=== PATIENT | male | born 1980 | race Caucasian/White ===

== ENCOUNTER 2019-08-31 13:00 | Emergency (ER) | payer OTHER, SELFPAY ==
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
--- NOTE | ~2019-08-31 | CT_ITS ---
EXAMINATION: CT cervical spine wo con DATE: 08/31/2019 14:29 INDICATION: Neck pain TECHNIQUE: Computed tomography (CT) of the cervical spine was performed without intravenous contrast. The dose-length product (DLP) was 348.50 mGy-cm. Automated exposure control and iterative reconstruc tion technique were employed. COMPARISON: 02/05/2013 FINDINGS: There is no fracture, dislocation, or subluxation. The vertebral body heights, alignment, a nd intervertebral disc spaces are normal. The paravertebral soft tissues are unremarkable. The odonto id is intact. There is a small amount of soft tissue gas seen in the right supraclavicular region and right chest wall. IMPRESSION: 1. No acute osseous abnormality. 2. Soft tissue gas in the right supraclavicular region and right chest wall. Recommend correlation fo r chest wall injury. Reviewed, dictated and finalized at location A. IMPRESSION: 1. No acute osseous abnormality. 2. Soft tissue gas in the right supraclavicular region and right chest wall. Re commend correlation for chest wall injury.
--- NOTE | ~2019-08-31 | CT_ITS ---
EXAMINATION: CT facial bones wo con DATE: 08/31/2019 14:27 INDICATION: Facial pain TECHNIQUE: Computed tomography (CT) of the facial bones and maxillofacial region was performed withou t intravenous contrast. The dose-length product (DLP) was 279.37 mGy-cm. Automated exposure control a nd iterative reconstruction technique were employed. COMPARISON: None. FINDINGS: There is no facial bone fracture. The orbits are intact. The globes are normal. The patient is edentulous. The visualized soft tissues are unremarkable. IMPRESSION: 1. No facial fracture identified. Reviewed, dictated and finalized at location A.
[2019-08-31 13:00] VITALS: BP 105/50; PULSE 97; RESP 14; TEMP 36.8; O2SAT 95
[2019-08-31] MEDS: SODIUM CHLORIDE 0.9% IV 1,000 ML 999 ML IV CONT (13:06)
[2019-08-31 13:12] VITALS: BP 105/50; PULSE 95; RESP 14; TEMP 36.8; O2SAT 97
[2019-08-31 13:27] LABS: Glucose Point of Care 132 (65-105)
[2019-08-31 13:42] LABS: Base Excess ABG -1.9 mmol/L (0-2); HCO3 ABG 24.6 mmol/L (23-29); Oxygen Saturation ABG 95.4 % (95-97); Oxyhemoglobin 93.4 % (94-100); PCO2 ABG 48.7 mmHg (35-45); PO2 ABG 76.1 mmHg (80-90); Total Hemoglobin 13.7 g/dL; pH ABG 7.32 (7.35-7.45)
[2019-08-31 13:43] LABS: Device ROOM AIR; Modified Allen's Test Pass; Site Drawn LEFT RADIAL
[2019-08-31 13:45] LABS: Basophils Absolute Auto 0.02 K/mm3 (0.00-0.10); Basophils Percent Auto 0.3 % (0.0-1.0); Eosinophils Absolute Auto 0.14 K/mm3 (0.02-0.50); Eosinophils Percent Auto 1.8 % (1.0-6.0); Hematocrit 38.6 % (40.0-54.0); Hemoglobin 12.5 g/dL (14.0-18.0); Immature Granulocyte Absolute 0.03 K/mm3 (0.00-0.00); Immature Granulocyte Percent A 0.4 % (0.0-0.0); Lymphocytes Absolute Auto 1.59 K/mm3 (1.10-4.50); Lymphocytes Percent Auto 20.7 % (18.0-42.0); Mean Corpuscular HGB Conc 32.4 g/dL (32.0-36.0); Mean Corpuscular Hemoglobin 30.3 pg (27.0-31.0); Mean Corpuscular Volume 93.7 fL (78.0-102.0); Mean Platelet Volume 8.8 fl (8.7-11.0); Monocytes Absolute Auto 0.61 K/mm3 (0.10-0.90); Monocytes Percent Auto 7.9 % (2.0-11.0); Neutrophils Absolute Auto 5.3 K/mm3 (1.7-7.2); Neutrophils Percent Auto 68.9 % (50.0-70.0); Platelet Count Result 218 K/mm3 (150-420); Red Blood Count 4.12 M/mm3 (4.70-6.10); Red Cell Distribution Width 13.8 % (11.6-14.4); White Blood Count 7.7 K/mm3 (4.8-10.8)
[2019-08-31 14:02] LABS: Alanine Aminotransferase 28 U/L (16-63); Albumin Level 3.2 g/dL (3.4-5.0); Alkaline Phosphatase 50 U/L (46-116); Amylase 45 U/L (25-115); Anion Gap 9.2 mmol/L (7-16); Aspartate Amino Transferase 31 U/L (15-37); Bilirubin,Total 0.3 mg/dL (0.00-1.00); Blood Urea Nitrogen 21 mg/dL (7-18); Calcium 7.7 mg/dL (8.5-10.1); Carbon Dioxide 27 mmol/L (21-32); Chloride 105 mmol/L (98-108); Creatine Kinase 245 U/L (39-308); Estimated CRCL calculation 72 ml/min; Estimated Glomerular Filt Rate > 60; Glucose 139 mg/dL (70-99); Lipase 100 U/L (73-393); Osmolality Calculated 291 mOsm/kg (285-295); Potassium 3.2 mmol/L (3.5-5.1); Sodium 138 mmol/L (136-145); Total Protein 6.5 g/dL (6.4-8.2)
[2019-08-31 14:17] LABS: Acetaminophen 0 ug/mL (10-30); Troponin I < 0.02 ng/mL (0.00-0.056)
[2019-08-31 14:18] LABS: Ethanol < 3 mg/dL (0-6)
--- NOTE | 2019-08-31 14:31 | ECG_ITS ---
Measurements Intervals [place] Rate: 90 P: 64 AL: 170 QRS: 60 QRSD: 85 T: 64 QT: 382 QTc: 469 Interpretive Statements SINUS RHYTHM DELAYED PRECORDIAL R/S TRANSITION MINIMAL Q WAVES- INF/LAT LEADS ST ELEVATION IN ANTEROLATERAL LEADS- CONSIDER INJURY, PERICARDITIS OR EARLY REPOLARIZATION BASELINE ARTIFACT- V2, V4-V6 BORDERLINE ECG Electronically Signed On 08-31-2019 21:09:05 CDT by Giovanni Ramos D.O.
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
[2019-08-31 15:39] LABS: Add Urine Microscopic? YES; Appearance Urine Clear (Clear); Bilirubin Urine Negative (Negative); Blood Urine Negative (Negative); Color Urine Yellow (Yellow); Glucose Urine UA Negative (Negative); Ketones Urine Negative (Negative); Leukocyte Esterase Ur Negative (Negative); Nitrate Urine Negative (Negative); Protein Urine 1+ (Negative); Specific Grav Ur >= 1.030 (1.010-1.020); Urobilinogen Urine 0.2 mg/dL (0.2-1.0)
[2019-08-31 15:46] LABS: Amphetamine Screen Urine Positive (Negative); Barbiturate Screen Urine Negative (Negative); Benzodiazepines Screen Urine Negative (Negative); Cannabinoid Screen Urine Positive (Negative); Cocaine Screen Urine Negative (Negative); Methadone Screen Urine Negative (Negative); Opiate Screen Urine Negative (Negative); Phencyclidine Screen Urine Negative (Negative)
[2019-08-31 15:49] LABS: Bacteria Urine 1+ /hpf; RBC Urine None seen /hpf (0-2); Squamous Epithelial Cell Urine Few /hpf (Few); WBC Urine None seen /hpf (0-3)
[2019-08-31 15:50] LABS: Mucus Urine Few /lpf
[2019-08-31 16:08] VITALS: BP 115/62; PULSE 86; RESP 15; O2SAT 96
== END 2019-08-31 16:10 | disposition left against medical advice (07) ==
PROVIDERS: Emergency Provider Emergency Medicine; PCP Internal Medicine
DX: R41.82 Altered mental status, unspecified (principal); F15.90 Other stimulant use, unspecified, uncomplicated; S16.1XXA Strain of muscle, fascia and tendon at neck level, initial encounter; V89.2XXA Person injured in unspecified motor-vehicle accident, traffic, initial encounter
CPT/HCPCS: 36415; 36600; 70450; 70486; 71045; 71250; 72125; 74176; 80053; 80307; 81001; 82150; 82550; 82805; 82948; 83690; 84484; 85025; 93005; 96360; 96361; 99284; J7030

== ENCOUNTER 2019-09-24 00:19 | Emergency (ER) | payer OTHER, SELFPAY ==
[2019-09-24 00:19] VITALS: BP 135/85; PULSE 128; RESP 20; TEMP 36.1; O2SAT 97
--- NOTE | 2019-09-24 00:24 | ECG_ITS ---
Measurements Intervals [place] Rate: 108 P: 72 MA: 124 QRS: 89 QRSD: 85 T: 61 QT: 359 QTc: 481 Interpretive Statements SINUS TACHYCARDIA MINIMAL Q WAVES- ANTEROLAT/INF LEADS ST ELEVATION IN ANTERIOR LEADS- PROBABLY EARLY REPOLARIZATION ABNORMAL ECG Electronically Signed On 09-24-2019 8:51:57 CDT by Giovanni Ramos D.O.
--- NOTE | 2019-09-24 00:25 | ED.SKABFB ---
HPI - Skin/Abscess/Foreign Bdy General Chief complaint: Skin/Abscess/Foreign Body Stated complaint: Possible Abscess Time Seen by Provider: 09/24/19 00:20 Source: patient Mode of arrival: ambulatory Limitations: no limitations History of Present Illness HPI narrative: 39-year-old man comes in today complaining of multiple painful lesions under his arms. Right greater than left. He states the symptoms started 5 or 6 days ago. He states that he was treated for similar symptoms about a year ago wherein he had I and D's. He denies fever, nausea, vomiting. Patient states that he has had 2 ablations for atrial fibrillation. complaint: abscess/boil Onset (ago): day(s) (6) Tetanus up to date: unsure Location: LUE (axilla) and RUE (axilla) Severity: moderate Quality: sharp Pain Consistency: constant Relieving factors: none Exacerbating factors: palpation Related Data Allergies Allergy/AdvReac Type Severity Reaction Status Date / Time No Known Allergies Allergy Unknown Unverified 05/20/12 23:00 Review of Systems Constitutional: Constitutional: Denies chills and Denies fever(s) Eyes: Eyes: Denies change in vision and Denies photophobia ENT: Denies dysphagia, Denies nasal congestion and Denies sore throat Cardiovascular: Cardiovascular: Denies chest pain, Reports rapid heart rate and Denies radiating jaw, neck or arm pain Respiratory: Respiratory: Denies cough, Denies dyspnea and Denies wheezing Gastrointestinal: Gastrointestinal: Denies abdominal pain, Denies nausea and Denies vomiting Musculoskeletal: Musculoskeletal: Denies arthralgias and Denies joint swelling Integumentary/Breasts: Skin/Breast: Denies pruritus, Denies erythema and Denies rash Neurologic: Denies vertigo, Denies dizziness and Denies syncope Hematologic/Lymphatic: Hematologic/Lymphatic: Denies easy bleeding and Denies easy bruising Allergic/Immunologic: Allergic/Immunologic: Denies throat swelling and Denies tongue swelling PMFSH Social History Social History Smoking packs per day: 1 Smoking cigarettes per day: 20.0 Smoking status: Current every day smoker Tobacco type: cigarettes Alcohol intake: unknown Substance use: current Substance use type: marijuana Exam Const: General: healthy appearing and alert Orientation/consciousness: patient oriented x3 Limitations: no limitations Other: Moderate acute distress Eyes: Conjunctivae: conjunctivae normal Pupils: Equal, round and reactive pupils present EOM: EOMs intact bilaterally Resp: Effort & Inspection: normal respiratory effort and not labored Auscultation: clear to auscultation bilaterally, no rales, no rhonchi and no wheezes Cardio: Rate: tachycardic Rhythm: regular rhythm Heart sounds: no murmurs Skin: General skin exam: normal color, no jaundice and no pallor Rashes: no rashes Other: 7 x 1-3 cm tender, firm subcutaneous masses with overlying erythema in the right axilla and 3 x1-2 cm tender, firm subcutaneous masses with overlying erythema in the left axilla. The 2 largest lesions under the right axilla have some modest fluctuance. Neuro: General: patient oriented x3, moves all extremities, no focal motor deficits and CN's II-XI intact bilaterally Speech: normal speech Extrem: General: normal to inspection and no clubbing, cyanosis or edema Psych: Appearance: grossly normal and well kempt Mental Status: mental status grossly normal Affect: normal affect Attitude: cooperative Thought content: Yes Normal thought content present Course Vital Signs Vital signs: Vital Signs Temperature 36.1 C L 09/24/19 00:19 Pulse Rate 128 H 09/24/19 00:19 Respiratory Rate 20 09/24/19 00:19 Blood Pressure 135/85 09/24/19 00:19 Pulse Oximetry 97 09/24/19 00:19 Temperature 36.1 C L 09/24/19 00:19 Pulse Rate 128 H 09/24/19 00:19 Respiratory Rate 20 09/24/19 00:19 Blood Pressure 135/85 08/1
[2019-09-24] MEDS: LIDOCAINE HCL 1% LOCAL INJ 20 ML VIAL 10 ML INFILTRATE (00:45)
[2019-09-24 00:59] VITALS: BP 138/78
== END 2019-09-24 01:11 | disposition home or self-care (01) ==
PROVIDERS: Emergency Provider Emergency Medicine; PCP Internal Medicine
DX: L02.412 Cutaneous abscess of left axilla (principal); L02.411 Cutaneous abscess of right axilla
CPT/HCPCS: 10061; 87070; 87077; 87186; 87205; 93005; 99283; 99284; A9270

== ENCOUNTER 2019-10-13 01:35 | Emergency (ER) | payer OTHER, SELFPAY ==
[2019-10-13] VITALS (13 sets, daily range): BP systolic 125–146; BP diastolic 79–93; PULSE 73–95; RESP 10–20; TEMP 36.9; O2SAT 92–97
--- NOTE | ~2019-10-13 | CT_ITS ---
EXAMINATION: CTA chest PE protocol DATE: 10/13/2019 02:37 INDICATION: Chest pain and shortness of breath TECHNIQUE: Computed tomography angiography (CTA) of the chest was performed with 100 mL Omnipaque-350 intravenous contrast timed to evaluate the pulmonary arteries. Coronal maximum intensity projection 3D-reconstructions were created by the technologist. The dose-length product (DLP) was 285.08 mGy-cm. Automated exposure control and iterative reconstruction technique were employed. COMPARISON: 08/31/2019 FINDINGS: The pulmonary arteries are well-opacified. No pulmonary embolism is identified. There is mi ld dependent atelectasis. No focal airspace opacities are identified. No pathologically enlarged thor acic lymph nodes are identified. The heart size is normal. An old left clavicle fracture is noted. IMPRESSION: 1. No pulmonary embolism or acute cardiopulmonary abnormality. Reviewed, dictated and finalized at location A.
--- NOTE | 2019-10-13 01:49 | ECG_ITS ---
Measurements Intervals [place] Rate: 80 P: 66 MD: 170 QRS: 60 QRSD: 88 T: 55 QT: 393 QTc: 455 Interpretive Statements SINUS RHYTHM MINIMAL Q WAVES- DIFFUSE LEADS BORDERLINE ECG Electronically Signed On 10-13-2019 8:27:14 CDT by Giovanni Ramos D.O.
--- NOTE | 2019-10-13 01:56 | PC.NURSE ---
ISP officer states he will leave at this time and release patient to receive medical treatment.
[2019-10-13 02:06] LABS: Basophils Percent Auto 0.5 % (0.2-1.2); Eosinophils Absolute Auto 0.2 K/mm3 (0-0.3); Hematocrit 38.6 % (42.0-52.0); Hemoglobin 12.5 g/dL (14.0-18.0); Immature Granulocyte Absolute 0.01 K/mm3 (0.00-0.031); Immature Granulocyte Percent A 0.2 % (0-0.5); Lymphocytes Percent Auto 43.2 % (18.3-44.2); Mean Corpuscular HGB Conc 32.4 g/dl (32-36); Mean Corpuscular Hemoglobin 29.8 pg (26-34); Mean Corpuscular Volume 92.1 fl (80-100); Monocytes Absolute Auto 0.7 K/mm3 (0.1-0.6); Monocytes Percent Auto 11.7 % (2.6-8.5); Neutrophils Absolute Auto 2.2 K/mm3 (1.3-6.7); Neutrophils Percent Auto 40.4 % (45.5-73.1); Platelet Count Result 236 k/mm3 (150-375); Red Blood Count 4.19 M/mm3 (4.6-6.20); Red Cell Distribution Width 13.8 % (11.5-14.5); White Blood Count 5.6 K/mm3 (4.5-10.0)
[2019-10-13 02:17] LABS: Prothrombin Time 12.7 Seconds (11.1-14.7)
[2019-10-13 02:18] LABS: Partial Thromboplastin Time 36.6 SECONDS (22.3-36.8)
[2019-10-13 02:20] LABS: Anion Gap 5 mmol/L (8-16); Blood Urea Nitrogen 19 mg/dL (9-20); Calcium 8.7 mg/dL (8.4-10.2); Carbon Dioxide 28 mmol/L (22-30); Chloride 103 mmol/L (98-107); Estimated Glomerular Filt Rate > 60; Glucose 87 mg/dL (75-110); Sodium 136 mmol/L (137-145)
--- NOTE | 2019-10-13 02:25 | PC.NURSE ---
Patient being taken to CT.
[2019-10-13 02:37] LABS: Troponin I < 0.012 ng/mL (0.000-0.034)
[2019-10-13 05:08] LABS: Troponin I < 0.012 ng/mL (0.000-0.034)
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
== END 2019-10-13 06:35 | disposition home or self-care (01) ==
PROVIDERS: Emergency Provider Emergency Medicine; PCP Internal Medicine
DX: R07.9 Chest pain, unspecified (principal); F17.210 Nicotine dependence, cigarettes, uncomplicated; R94.31 Abnormal electrocardiogram [ECG] [EKG]
CPT/HCPCS: 36415; 71275; 80048; 84484; 85025; 85610; 85730; 93005; 99284; Q9967

== ENCOUNTER 2020-02-15 12:43 | Emergency (ER) | payer OTHER, SELFPAY ==
[2020-02-15 12:45] VITALS: BP 134/89; PULSE 103; RESP 18; TEMP 37.1; O2SAT 98
--- NOTE | 2020-02-15 12:59 | ED.GENADULT ---
HPI - General Adult General Chief complaint: Extremity Problem,Nontraumatic Stated complaint: Swelling of the legs Time Seen by Provider: 02/15/20 12:59 Source: patient Mode of arrival: ambulatory Limitations: no limitations History of Present Illness HPI narrative: 39-year-old man comes in today complaining of 4-6 weeks of swelling in his lower legs. Patient states that he has had no injury or recent surgery nor has he had any chest pain, shortness of breath, redness, fever, weakness or numbness. Patient states that he has recently used both amphetamines and narcotics. Onset (ago): week(s) (4-6) Location: lower extremity Quality: aching Pain Consistency: constant Relieving factors: none and other (leg eelvation) Associated symptoms: denies other symptoms Related Data Home Medications Medication Instructions Recorded Confirmed No Home Medications 02/15/20 02/15/20 Allergies Allergy/AdvReac Type Severity Reaction Status Date / Time No Known Allergies Allergy Unknown Unverified 05/20/12 23:00 Review of Systems Constitutional: Constitutional: Denies chills, Denies fever(s) and Denies weakness ENT: Denies dysphagia, Denies nasal congestion and Denies sore throat Cardiovascular: Cardiovascular: Denies chest pain and Denies radiating jaw, neck or arm pain Respiratory: Respiratory: Denies cough, Denies dyspnea and Denies wheezing Gastrointestinal: Gastrointestinal: Denies abdominal pain, Denies nausea and Denies vomiting Genitourinary: Genitourinary: Denies hematuria, Denies dysuria and Denies urinary frequency Musculoskeletal: Musculoskeletal: Denies back pain, Denies arthralgias and Denies joint swelling Integumentary/Breasts: Skin/Breast: Denies rash Neurologic: Denies vertigo, Denies dizziness and Denies syncope Hematologic/Lymphatic: Hematologic/Lymphatic: Denies easy bleeding and Denies easy bruising Allergic/Immunologic: Allergic/Immunologic: Denies lip swelling and Denies throat swelling PMFSH Past Medical History Medical History Atrial fibrillation Bipolar 1 disorder Surgical History Surgical History History of radiofrequency ablation procedure for cardiac arrhythmia Social History Social History Smoking packs per day: 1 Smoking cigarettes per day: 20.0 Smoking status: Current every day smoker Tobacco type: cigarettes Alcohol intake: unknown Substance use: current Substance use type: marijuana Exam Const: General: healthy appearing Orientation/consciousness: patient oriented x3 Limitations: No no limitations Other: mild acute distress. Eyes: Conjunctivae: conjunctivae normal EOM: EOMs intact bilaterally Resp: Effort & Inspection: normal respiratory effort and not labored Auscultation: clear to auscultation bilaterally, no rales, no rhonchi and no wheezes Other: pulses are full and symmetric Cardio: Rate: regular rate Rhythm: regular rhythm GI: GI Palp: No Soft to palpation and No Tenderness to palpation present (GI) Skin: General skin exam: normal color, no jaundice and no pallor Rashes: no rashes Other: pitting pedal edema bilaterally. No tenderness or erythema. Extrem: General: normal to inspection Other: no clubbing or cyanosis. Psych: Appearance: grossly normal and well kempt Mental Status: mental status grossly normal Affect: normal affect Attitude: cooperative Thought content: Yes Normal thought content present Course Vital Signs Vital signs: Vital Signs Temperature 37.1 C 02/15/20 12:45 Pulse Rate 103 H 02/15/20 12:45 Respiratory Rate 18 02/15/20 12:45 Blood Pressure 134/89 02/15/20 12:45 Pulse Oximetry 98 02/15/20 12:45 Temperature 37.1 C 02/15/20 12:45 Pulse Rate 103 H 02/15/20 12:45 Respiratory Rate 18 02/15/20 12:45 Blood Pressure 134/89
--- NOTE | 2020-02-15 13:04 | ECG_ITS ---
Measurements Intervals [place] Rate: 85 P: 58 [place]: 165 QRS: 69 QRSD: 86 T: 54 QT: 379 QTc: 453 Interpretive Statements SINUS RHYTHM MINIMAL Q WAVES- ANTEROLAT/INF LEADS BASELINE ARTIFACT- I, II, III, AVR, AVL, AVF, V1-V6 Electronically Signed On 02-15-2020 16:36:49 [employer] by Goivanni Ramos D.O.
[2020-02-15 13:20] LABS: Basophils Absolute Auto 0.03 K/mm3 (0.00-0.10); Basophils Percent Auto 0.6 % (0.0-1.0); Eosinophils Absolute Auto 0.28 K/mm3 (0.02-0.50); Eosinophils Percent Auto 5.5 % (1.0-6.0); Hematocrit 38.1 % (40.0-54.0); Hemoglobin 12.3 g/dL (14.0-18.0); Immature Granulocyte Absolute 0.02 K/mm3 (0.00-0.00); Immature Granulocyte Percent A 0.4 % (0.0-0.0); Lymphocytes Absolute Auto 2.36 K/mm3 (1.10-4.50); Lymphocytes Percent Auto 46.1 % (18.0-42.0); Mean Corpuscular HGB Conc 32.3 g/dL (32.0-36.0); Mean Corpuscular Hemoglobin 29.9 pg (27.0-31.0); Mean Corpuscular Volume 92.5 fL (78.0-102.0); Mean Platelet Volume 8.8 fl (8.7-11.0); Monocytes Percent Auto 9.8 % (2.0-11.0); Neutrophils Absolute Auto 1.9 K/mm3 (1.7-7.2); Neutrophils Percent Auto 37.6 % (50.0-70.0); Platelet Count Result 213 K/mm3 (150-420); Red Blood Count 4.12 M/mm3 (4.70-6.10); Red Cell Distribution Width 13.5 % (11.6-14.4); White Blood Count 5.1 K/mm3 (4.8-10.8)
[2020-02-15 13:23] LABS: Add Urine Microscopic? NO; Appearance Urine Clear (Clear); Bilirubin Urine Negative (Negative); Blood Urine Negative (Negative); Color Urine Yellow (Yellow); Glucose Urine UA Negative (Negative); Ketones Urine Negative (Negative); Leukocyte Esterase Ur Negative (Negative); Nitrate Urine Negative (Negative); Protein Urine Negative (Negative); Specific Grav Ur 1.025 (1.010-1.020); Urobilinogen Urine 0.2 mg/dL (0.2-1.0)
[2020-02-15 13:31] LABS: D Dimer 0.21 mg/L (0.19-0.50)
[2020-02-15 13:34] LABS: BNP 11.1 pg/mL (0-100)
[2020-02-15 13:36] LABS: Alanine Aminotransferase 31 U/L (16-63); Albumin Level 3.5 g/dL (3.4-5.0); Alkaline Phosphatase 78 U/L (46-116); Anion Gap 4 mmol/L (8-16); Aspartate Amino Transferase 20 U/L (15-37); Bilirubin,Total 0.2 mg/dL (0.00-1.00); Blood Urea Nitrogen 18 mg/dL (7-18); CRP < 0.5 mg/dL (0.0-0.9); Calcium 8.6 mg/dL (8.5-10.1); Carbon Dioxide 31 mmol/L (21-32); Chloride 101 mmol/L (98-108); Estimated Glomerular Filt Rate > 60; Glucose 118 mg/dL (70-99); Osmolality Calculated 284 mOsm/kg (285-295); Potassium 4.2 mmol/L (3.5-5.1); Sodium 136 mmol/L (136-145); Total Protein 6.9 g/dL (6.4-8.2); Troponin I 23.7 ng/L (0.00-60.4)
[2020-02-15 14:15] VITALS: RESP 20
== END 2020-02-15 14:16 | disposition home or self-care (01) ==
PROVIDERS: Emergency Provider Emergency Medicine
DX: R60.0 Localized edema (principal)
CPT/HCPCS: 36415; 80053; 81003; 83880; 84484; 85025; 85380; 86140; 93005; 99282; 99283

== ENCOUNTER 2020-07-10 09:58 | Observation (INO) | payer OTHER, SELFPAY ==
[2020-07-10] VITALS (12 sets, daily range): BP systolic 117–151; BP diastolic 59–110; PULSE 67–129; RESP 16–25; TEMP 36.1–36.8; O2SAT 95–100
--- NOTE | ~2020-07-10 | XR_ITS ---
EXAMINATION: XR shoulder LT min 2V EXAM DATE: 07/10/2020 10:52 INDICATION: No known recent injury provided at this time. Pain of the left shoulder. TECHNIQUE: The following left shoulder projections obtained: frontal projection with internal rotatio n, frontal projection with external rotation, Grashey, and axillary (4+ views). There is no prior st udy for comparison. FINDINGS: No evidence of left shoulder rotator cuff calcific tendinosis. Unremarkable left glenohu meral and acromioclavicular joints. There are no acute fractures or dislocations identified. There i s no subcutaneous gas. The soft tissue is unremarkable. There are no radiopaque foreign bodies. IMPRESSION: 1. Unremarkable XR shoulder LT min 2V exam. Reviewed, dictated and finalized at location A.
--- NOTE | ~2020-07-10 | XR_ITS ---
EXAMINATION: XR chest 1V portable EXAM DATE: 07/10/2020 10:53 INDICATION: Tachycardia. TECHNIQUE: Portable AP frontal chest x-ray was obtained. Comparison is made to prior examination from 08/01/2019. FINDINGS: Mild hyperinflation. The lungs are clear. There are no pleural effusions. The cardiomedia stinal silhouette is within normal limits. There is no pneumothorax suspected. The bones and soft t issues are unremarkable. IMPRESSION: Mild hyperinflation. Reviewed, dictated and finalized at location A. IMPRESSION: Mild hyperinflation.
--- NOTE | 2020-07-10 10:36 | ED.GENADULT ---
HPI - General Adult General Chief complaint: Unspecified Stated complaint: drug abuse/poss poisoning Time Seen by Provider: 07/10/20 10:05 Source: patient Mode of arrival: ambulatory Limitations: intoxication History of Present Illness HPI narrative: Patient presents for evaluation of pain all over . He admits to history of substance abuse, informing me that he smokes methamphetamine. Indicates his last use was yesterday afternoon. However nursing staff informs me that patient stated he has been using methamphetamine in an attempt to get off of heroin . Apparently patient has been anxious and thrashing around since approximately 1630 yesterday. He informs me that he has left shoulder pain. No identified precipitating cause or injury. He states he also consumes alcohol with last use within the last 1 to 2 days. He denies any chest pain shortness of breath. On my initial evaluation, he is thrashing around in the bed, anxious, only answering questions after I repeat myself several times. States he has a history of atrial fibrillation but has been off medication for a while when I asked him to clarify that he indicates he has not been on any medications since his cardiac catheterization which was at the age of 21. Related Data Home Medications Medication Instructions Recorded Confirmed No Home Medications 02/15/20 02/15/20 Allergies Allergy/AdvReac Type Severity Reaction Status Date / Time No Known Allergies Allergy Unknown Unverified 05/20/12 23:00 Review of Systems Review of Systems: Narrative: CONSTITUTIONAL: Denies fever, chills, or sweats. EYES: Denies visual changes, redness, or discharge. ENT: Denies rhinorrhea, congestion, sore throat, or otalgia. CARDIOVASCULAR: Denies chest pain, palpitations, or edema. RESPIRATORY: Denies cough or dyspnea. GASTROINTESTINAL: Denies abdominal pain, nausea, vomiting, or diarrhea. GENITOURINARY: Denies dysuria or hematuria. SKIN: Denies rash or itching. MUSCULOSKELETAL: Reports pain in the left shoulder and pain all over . NEUROLOGIC: Denies headache, numbness, dizziness, or weakness. PSYCHIATRIC: Denies anxiety or depression. [facility] Past Medical History Medical History (Updated 07/10/20 @ 12:23 by Chang Greene, [facility], ) Atrial fibrillation Bipolar 1 disorder Substance abuse Surgical History Surgical History History of radiofrequency ablation procedure for cardiac arrhythmia Social History Social History Smoking packs per day: 1 Smoking cigarettes per day: 20.0 Smoking status: Current every day smoker Tobacco type: cigarettes Alcohol intake: unknown Substance use: current Substance use type: marijuana Exam Narrative: Exam Narrative: GENERAL: Visibly uncomfortable. Thrashing around in bed. HEAD: Normocephalic, atraumatic. EYES: PERRLA and EOMI. ENT: Nares clear, no rhinorrhea or epistaxis. Mucous membranes moist. Oropharynx without tonsillar hypertrophy exudate or other lesions. Bilateral TMs pearly sellers nonbulging NECK: Supple. No adenopathy or masses. No carotid bruits or JVD CHEST: Clear to auscultation. No respiratory distress. No wheezes rales or rhonchi HEART: Regular rhythm. Rate 105. No murmur heard. Normal peripheral pulses. ABDOMEN: Soft, nontender, nondistended, normal active bowel sounds. EXTREMITIES: Normal range of motion. No edema. SKIN: Warm, dry, no rash. NEURO: No focal deficits. Oriented x 3. Speech mumbled PSYCH: Anxious. Abnormal affects Course Course Emergency Course: This is a 40-year-old male with history of substance abuse that arrived suspected to be under the influence of methamphetamine. Of note on his lab work, CPK was close to 1300. Troponin was negative. Patient was hydrated. I discussed all relevant facts of case with supervising physician, Dr. Aguilera, who was in agreement with plans for adm
--- NOTE | 2020-07-10 10:39 | ECG_ITS ---
Measurements Intervals [place] Rate: 98 P: 66 OR: 154 QRS: 68 QRSD: 92 T: 52 QT: 383 QTc: 491 Interpretive Statements SINUS RHYTHM MINIMAL Q WAVES- ANTEROLAT/INF LEADS NONSPECIFIC T-WAVE ABNORMALITY- ANTERIOR LEADS BORDERLINE ECG Electronically Signed On 07-10-2020 17:47:14 CDT by Giovanni Ramos D.O.
[2020-07-10] MEDS: SODIUM CHLORIDE 0.9% IV 1,000 ML 999 ML IV CONT ×2 (11:03→12:30)
[2020-07-10] MEDS: LORazepam INJ (*CRX) 2 MG/ML VIAL 1 MG IV PUSH ×2 (11:04→23:10)
--- NOTE | 2020-07-10 11:14 | PC.NURSE ---
Pt up out of bed while this RN in room . Informed pt that he needs to sit in bed so he will not fall. Pt states I am in pain Pt states I will leave AMA.
[2020-07-10 11:15] LABS: Basophils Percent Auto 0.4 % (0.2-1.2); Eosinophils Absolute Auto 0.3 K/mm3 (0-0.3); Eosinophils Percent Auto 2.5 % (0-4.4); Hematocrit 40.3 % (42.0-52.0); Hemoglobin 13.1 g/dL (14.0-18.0); Immature Granulocyte Absolute 0.03 K/mm3 (0.00-0.031); Immature Granulocyte Percent A 0.3 % (0-0.5); Lymphocytes Absolute Auto 3.37 K/mm3 (0.9-3.2); Lymphocytes Percent Auto 31.7 % (18.3-44.2); Mean Corpuscular HGB Conc 32.5 g/dl (32-36); Mean Corpuscular Hemoglobin 28.8 pg (26-34); Mean Corpuscular Volume 88.6 fl (80-100); Mean Platelet Volume 8.8 fl (7.4-10.4); Monocytes Absolute Auto 1.5 K/mm3 (0.1-0.6); Neutrophils Absolute Auto 5.4 K/mm3 (1.3-6.7); Neutrophils Percent Auto 51.1 % (45.5-73.1); Platelet Count Result 277 k/mm3 (150-375); Red Blood Count 4.55 M/mm3 (4.6-6.20); Red Cell Distribution Width 14.6 % (11.5-14.5); White Blood Count 10.6 K/mm3 (4.5-10.0)
[2020-07-10 11:26] LABS: Ethanol < 10 mg/dL (<10)
[2020-07-10 11:37] LABS: Troponin I < 0.012 ng/mL (0.000-0.034)
[2020-07-10 11:45] LABS: Alanine Aminotransferase 125 U/L (4-50); Albumin Level 4.4 g/dL (3.5-5.1); Alkaline Phosphatase 76 U/L (38-126); Anion Gap 10 mmol/L (8-16); Aspartate Amino Transferase 143 U/L (17-59); Bilirubin,Total 0.7 mg/dL (0.2-1.3); Blood Urea Nitrogen 30 mg/dL (9-20); Calcium 9.3 mg/dL (8.4-10.2); Carbon Dioxide 25 mmol/L (22-30); Chloride 104 mmol/L (98-107); Estimated CRCL calculation 115 ml/min; Estimated Glomerular Filt Rate > 60; Glucose 136 mg/dL (75-110); Magnesium 2.3 mg/dL (1.6-2.3); Potassium 4.2 mmol/L (3.4-5.0); Sodium 139 mmol/L (137-145)
[2020-07-10 11:51] LABS: Creatine Kinase 1292 U/L (55-170)
--- NOTE | 2020-07-10 13:46 | PC.NURSE ---
This RN into pts room to get urine. Informed pt that we will need to straight cath pt if unable to give sample. Pt refused to lay back and put his legs down. Pt states i want to leave AMA . Informed PA Ramona of this.
--- NOTE | 2020-07-10 13:51 | PC.NURSE ---
Informed PA Ramona that pt is still not giving urine sample , per PA thats ok, we dont need urine to admit him .
--- NOTE | 2020-07-10 14:01 | PC.NURSE ---
Pt states he doesnt want the medication he just wants to leave AMA. Informed PA Ramona of this and he states that we cant let pt go because he is only oriented to 1. PA states that we cant withhold care from pt.
[2020-07-10 14:33] LABS: Troponin I < 0.012 ng/mL (0.000-0.034)
[2020-07-10] MEDS: LORazepam INJ (*CRX) 2 MG/ML VIAL 0.5 MG IV PUSH (14:36)
[2020-07-10 14:51] LABS: Add Urine Microscopic? YES; Appearance Urine Clear (Clear); Bilirubin Urine Negative (Negative); Blood Urine Negative (Negative); Color Urine Amber (Yellow); Glucose Urine UA Negative (Negative); Ketones Urine Trace mg/dL (Negative); Leukocyte Esterase Ur Negative LEU/UL (Negative); Mucus Urine Few /lpf; Nitrate Urine Negative (Negative); Protein Urine Negative (Negative); RBC Urine 0-2 /hpf (0-2); Urobilinogen Urine Negative mg/dL (<2.0); WBC Urine 0-3 /hpf
[2020-07-10 14:52] LABS: Specific Grav Ur 1.033 (1.001-1.035)
[2020-07-10 15:12] LABS: Barbiturate Screen Urine Negative (Negative); Benzodiazepines Screen Urine Negative (Negative)
[2020-07-10 15:13] LABS: Cannabinoid Screen Urine Positive (Negative); Cocaine Screen Urine Negative (Negative); Methadone Screen Urine Negative (Negative); Opiate Screen Urine Negative (Negative); Phencyclidine Screen Urine Negative (Negative)
--- NOTE | 2020-07-10 15:30 | PC.NURSE ---
this RN , charge nurse, Dr. Aguilera and several techs in room trying to get pt to get into bed. Pt starts screaming and refusing to get into bed. Pt is placed back into bed with assistance from techs and RN. Pt is trying to grab and squeeze at staff pt states i fucking hate you, I want to leave AMA, I am calling my senior database programmer Pt placed in restraints per EDP. good pulses are noted and sitter is at bedside.
[2020-07-10 15:32] LABS: Amphetamine Screen Urine Positive (Negative)
[2020-07-10 16:07] LABS: Acetaminophen < 10 ug/mL (10-30); Salicylate < 1.0 mg/dL (2-20)
[2020-07-10] MEDS: HALOPERIDOL LACTATE 5 MG/ML VIAL IV PUSH (16:11)
[2020-07-10] MEDS: WATER, STERILE FOR INJECTION 10 ML VIAL XX (16:12)
[2020-07-10] MEDS: OLANZapine 10 MG INJ VIAL (16:12)
--- NOTE | 2020-07-10 18:01 | PM.IMHP ---
H&P: HPI History of Present Illness Date/Time: 07/10/20 18:01 male patient who has a history of polysubstance abuse. To the emergency room today complaining of pain all over. The patient admitted earlier that he smokes and methamphetamine. However he told the daughter that he was given 2 pills at a friend's house anything said it was wrapped poison. The patient started using methamphetamine and attempt to get off of heroin. According to his daughter Stefani the patient has used heroin in the past. The patient was complaining of some left shoulder pain. He also consumes alcohol with last use the last day or 2. He denied any shortness of breath. Patient explained that he had a history of atrial fibrillation but was off of his medication. It is very difficult to understand the patient's speech. He is pacing around the room and getting out of the bed and taking off the heart monitor and has torn apart is IV tubimg. The patient is trying to sign out AMA. We were able to talk to his daughter Stefani who came in to talk to the patient. The patient then sat down on the bed. The patient was given multiple medications to help calm him down. The patient was swinging his legs and pacing and rocking and was talking rapidly with incomprehensible speech. On IV fluids for rhabdomyolysis. He was given Ativan couple different times, Haldol, and Zyprexa. The patient was then placed in restraints. The daughters at the bedside crying. His chest x-ray was read as mild hyperinflation. Shoulder x-ray of the left shoulder was found to be unremarkable.. Total creatinine is 1292. Troponin was found to be undetectable. Patient was found to be positive for amphetamines and cannabinoids. The patient lives with his mother and was telling her that he felt odd and that he could not feel is arms and his feet. He took a cold shower then went outside to smoke a cigarette. That he disappeared. He was found later to be with a friend in another town. The patient then came to the emergency room. His daughter is at the bedside. The patient is being admitted for observation on the date of service of 07/10/2020. Chief Complaint: Pain all over Review of Systems Review of Systems: ROS unobtainable: Yes unobtainable due to mental status [facility] Past Medical History Medical History (Updated 07/10/20 @ 18:14 by Joana Rhodes NP) Atrial fibrillation Bipolar 1 disorder Substance abuse Surgical History Surgical History History of radiofrequency ablation procedure for cardiac arrhythmia Social History Social History (Updated 07/10/20 @ 18:15 by Joana Rhodes NP) Social History: The patient's daughter Stefani stated that he lives with his mother and that he has 4 children. He smokes about a pack cigarettes a day. He was known to use heroin in the past. And he has been using heroin for at least 7 years. On and off. He does use alcohol and unknown quantities. He lives with his mother and I am not sure she is the durable power deputy commonwealth's attorney for healthcare. Patient is listed as a full code. His daughter Stefani can be reached at [phone] Smoking packs per day: 1 Smoking cigarettes per day: 20.0 Smoking status: Current every day smoker Tobacco type: cigarettes Alcohol intake: unknown Substance use: current Substance use type: marijuana Meds Home Medications and Allergies Home Medications Medication Instructions Recorded Confirmed Type No Home Medications 02/15/20 02/15/20 History Allergies Allergy/AdvReac Type Severity Reaction Status Date / Time No Known Allergies Allergy Unknown Unverified 05/20/12 23:00 Vital Signs Vital Signs - 24 hr 07/10/20 10:09 07/10/20 12:00 07/10/20 12:34 Temperature 36.6 C Pulse Rate 110 H 74 67 Respiratory Rate 25 H 18 20 Blood Pressure 141/59 H 131/78 135/86 Pulse Oximetry 100 100 99 07/10/20 13:00 07/10/20 15:00 07/10/20 17:
--- NOTE | 2020-07-10 18:20 | PC.NURSE ---
Pt taken to room by specimen technician. Pts belongings were taken with him.
--- NOTE | 2020-07-10 18:32 | ADMGEN ---
This patient, Sang Chávez, was admitted to Medical Room 244-. Patient/family oriented to hospital policies and general routines including ID bracelet, bed and alarms, visiting hours, pain management, procedures, bathroom and other care routines, personal items, smoking policy, room service/diet, and visiting hours. Information on how to activate the Rapid Response Team has been discussed. Patient/Family are encouraged to report perceived risks to care and to ask questions if they do not understand what they are told or what they should do.
--- NOTE | 2020-07-10 18:53 | PC.NURSE ---
Patient unable to answer admission assessment questions. Calls were made to both Hakeem his brother and Stefani his daughter, both did not answer their phones for questions.
[2020-07-10 18:57] LABS: Acetaminophen < 10 ug/mL (10-30); Creatine Kinase 1045 U/L (55-170); Salicylate < 1.0 mg/dL (2-20)
[2020-07-10] MEDS: SODIUM CHLORIDE 0.9% IV 1,000 ML 125 ML IV CONT (18:59)
[2020-07-10] MEDS: NICOTINE (*PBKC) 21 MG PATCH 1 PATCH TRANSDERM (21:01)
--- NOTE | 2020-07-10 23:07 | ECG_ITS ---
Measurements Intervals [place] Rate: 87 P: 86 GA: 136 QRS: 74 QRSD: 86 T: 57 QT: 394 QTc: 476 Interpretive Statements SINUS RHYTHM NONSPECIFIC T-WAVE ABNORMALITY- ANT/INF LEADS BASELINE WANDER- V1 BORDERLINE ECG Electronically Signed On 07-11-2020 7:45:25 CDT by Giovanni Ramos D.O.
[2020-07-10 23:09] LABS: Glucose Point of Care 97 mg/dl (65-105)
[2020-07-10 23:58] LABS: Troponin I < 0.012 ng/mL (0.000-0.034)
[2020-07-11] VITALS: PULSE 105
--- NOTE | 2020-07-11 00:13 | PM.EVENT ---
Event Note Event Note Event Note: A rapid response was called per nurse taking care of the patient. The nurse stated that the patient set straight up in bed grabbed his chest and said that he is having some chest pain. The patient was trying to get out of bed and then he started curl up in the position. The patient was given Ativan an EKG was performed. The EKG was comparable to his last EKG. Troponins have all been negative so far. His CK had been elevated earlier due to the rhabdo. The patient come down was he got the Ativan any went back to sleep. His troponin is negative. His total CK is starting to come down.
[2020-07-11] MEDS: MORPHINE SULFATE (*CRX) 2 MG/ML INJ IV PUSH ×2 (01:00→05:15)
[2020-07-11] MEDS: SODIUM CHLORIDE 0.9% IV 1,000 ML 125 ML IV CONT ×2 (03:48→14:52)
[2020-07-11 04:00] VITALS: PULSE 97
[2020-07-11 05:45] LABS: Basophils Percent Auto 0.3 % (0.2-1.2); Eosinophils Absolute Auto 0.2 K/mm3 (0-0.3); Eosinophils Percent Auto 3.8 % (0-4.4); Hematocrit 37.5 % (42.0-52.0); Hemoglobin 12.1 g/dL (14.0-18.0); Immature Granulocyte Absolute 0.02 K/mm3 (0.00-0.031); Immature Granulocyte Percent A 0.3 % (0-0.5); Lymphocytes Absolute Auto 1.67 K/mm3 (0.9-3.2); Lymphocytes Percent Auto 27.8 % (18.3-44.2); Mean Corpuscular HGB Conc 32.3 g/dl (32-36); Mean Corpuscular Hemoglobin 28.7 pg (26-34); Mean Corpuscular Volume 89.1 fl (80-100); Monocytes Absolute Auto 0.6 K/mm3 (0.1-0.6); Monocytes Percent Auto 10.3 % (2.6-8.5); Neutrophils Absolute Auto 3.4 K/mm3 (1.3-6.7); Neutrophils Percent Auto 57.5 % (45.5-73.1); Platelet Count Result 222 k/mm3 (150-375); Red Blood Count 4.21 M/mm3 (4.6-6.20); Red Cell Distribution Width 14.6 % (11.5-14.5)
[2020-07-11 06:00] VITALS: BP 140/75; PULSE 109; RESP 21; TEMP 36.3; O2SAT 100
[2020-07-11 06:03] LABS: Anion Gap 6 mmol/L (8-16); Blood Urea Nitrogen 16 mg/dL (9-20); Calcium 8.6 mg/dL (8.4-10.2); Carbon Dioxide 24 mmol/L (22-30); Chloride 108 mmol/L (98-107); Estimated CRCL calculation 130 ml/min; Estimated Glomerular Filt Rate > 60; Glucose 81 mg/dL (75-110); Potassium 3.4 mmol/L (3.4-5.0); Sodium 138 mmol/L (137-145)
[2020-07-11] MEDS: LORazepam INJ (*CRX) 2 MG/ML VIAL 1 MG IV PUSH (06:27)
[2020-07-11 08:00] VITALS: PULSE 112
[2020-07-11 10:44] LABS: Creatine Kinase 480 U/L (55-170)
--- NOTE | 2020-07-11 11:58 | PM.DS ---
DS: Admitting Diagnosis Admitting Diagnosis Admitting Diagnosis: (1) Rhabdomyolysis: Qualifiers: Rhabdomyolysis type: non-traumatic Qualified Code(s): M62.82 - Rhabdomyolysis Code(s): M62.82 - Rhabdomyolysis Status: Acute Assessment and Plan: Continue with IV fluids. Check CK-MB in the morning. Most likely related to his methamphetamine usage. The patient has had multiple medications to help calm him down and patient is still restless and anxious. Continue with p.r.n. Ativan. His daughter is at the bedside trying to calm him down. However the daughter is very upset crying at this time. (2) Methamphetamine abuse: Code(s): F15.10 - Other stimulant abuse, uncomplicated Status: Acute Assessment and Plan: This is a chronic thing for the patient. Continue with IV fluids and p.r.n. Ativan. (3) Substance abuse: Code(s): F19.10 - Other psychoactive substance abuse, uncomplicated Status: Acute Assessment and Plan: The patient has polysubstance abuse. (4) Tobacco abuse: Code(s): Z72.0 - Tobacco use Status: Acute Assessment and Plan: I talked to him for approximately 5 minutes concerning smoking cessation and I offered him a nicotine patch. DS: Discharge Diagnosis Discharge Diagnosis (1) Rhabdomyolysis: Qualifiers: Rhabdomyolysis type: non-traumatic Qualified Code(s): M62.82 - Rhabdomyolysis Code(s): M62.82 - Rhabdomyolysis Status: Acute (2) Methamphetamine abuse: Code(s): F15.10 - Other stimulant abuse, uncomplicated Status: Acute Assessment and Plan: This is a chronic thing for the patient. Continue with IV fluids and p.r.n. Ativan. (3) Substance abuse: Code(s): F19.10 - Other psychoactive substance abuse, uncomplicated Status: Acute Assessment and Plan: The patient has polysubstance abuse. (4) Tobacco abuse: Code(s): Z72.0 - Tobacco use Status: Acute DS: Summary Hospital Course Reason for hospitalization: drrug use Hospital Course: 40yo M admitted in acute rhabdomyolysis after consumption of methamphetamines. He responded well to IVF therapy and his CPK improved. He required Ativan during this hospitalization and was discharged home in stable condition after he slept and ate. Status at Discharge Functional status at discharge: independent ambulation Overall status at discharge: patient is back to baseline Time Spent with Patient Time attestation: Total time spent providing and/or coordinating discharge services: Time spent: Less than 30 minutes Exam Const: General: well developed, alert, awake and intoxicated appearing (Patient was staggering around the room.) Nutritional Appearance: thin Orientation/consciousness: oriented to person and oriented to time HENMT: Head: normal to inspection Ears: hearing grossly normal bilaterally General nose exam: Normal external nose present and Normal nares present Eyes: General: appearance normal, both eyes and all related structures Alignment and Position: alignment normal Periorbital: periorbital findings normal Eyelids: eyelids normal Conjunctivae: conjunctivae normal EOM: EOMs intact bilaterally Neck: Neck: normal visual inspection Chest: Chest palpation & inspection: normal inspection of the chest Resp: Effort & Inspection: normal respiratory effort Cardio: Rate: regular rate Rhythm: regular rhythm Heart sounds: S1 normal heart sound present and S2 normal heart sound present GI: Inspection: normal to inspection Rectal Exam: deferred Skin: General skin exam: normal color Lesions: no lesions Rashes: no rashes Trauma: no lacerations or abrasions Wounds: no wounds Hair: normal Nails: normal Neuro: General: oriented to person and oriented to time Cranial nerves: Yes Equal, round and reactive pupils present and Yes Normal hearing present Cognition (Neuro): abnormal cognition Gait exam (Neuro): [place]
== END 2020-07-11 16:50 | disposition home or self-care (01) ==
LOC: ANHED 12:23 → ANH2MED 17:50
PROVIDERS: Nurse Practitioner; Admitting Provider Hospitalist; Emergency Provider Nurse Practitioner; Visit Provider Hospitalist
DX: M62.82 Rhabdomyolysis (principal); F15.10 Other stimulant abuse, uncomplicated; F19.10 Other psychoactive substance abuse, uncomplicated; F12.90 Cannabis use, unspecified, uncomplicated; F17.210 Nicotine dependence, cigarettes, uncomplicated; M25.512 Pain in left shoulder; F31.9 Bipolar disorder, unspecified; I48.91 Unspecified atrial fibrillation; R07.89 Other chest pain
CPT/HCPCS: 36415; 71045; 73030; 80048; 80053; 80307; 81001; 82550; 82948; 83735; 84484; 85025; 93005; 96361; 96374; 96375; 96376; 99285; A9270; G0378; G0379; J1630; J2060; J2270; J7030

== ENCOUNTER 2020-10-21 11:20 | Emergency (ER) | payer OTHER, SELFPAY | END 2020-10-21 11:21 | disposition left against medical advice (07) | PROVIDERS: Emergency Provider Emergency Medicine | DX: Z04.9 Encounter for examination and observation for unspecified reason (principal); Z53.8 Procedure and treatment not carried out for other reasons | CPT/HCPCS: 99199 ==

== ENCOUNTER 2020-10-22 11:17 | Emergency (ER) | payer OTHER, SELFPAY ==
--- NOTE | ~2020-10-22 | CT_ITS ---
EXAMINATION: CT facial & cervical spine wo DATE: 10/22/2020 12:12 INDICATION: Head injury TECHNIQUE: Computed tomography (CT) of the maxillofacial region and cervical spine was performed with out intravenous contrast. The dose-length product (DLP) was 605.33 mGy-cm. Automated exposure control and iterative reconstruction technique were employed. COMPARISON: None FINDINGS: MAXILLOFACIAL CT: There is left periorbital soft tissue swelling. A subtle fracture is present in the lateral wall of l eft orbit. There is also a nondisplaced fracture of the left zygomatic arch. No definite additional f acial fracture is identified. A small amount of gas is present in the left orbit. There is mild mucos al thickening of the paranasal sinuses. The patient is edentulous. CERVICAL SPINE CT: There is no fracture, dislocation, or subluxation. The vertebral body heights, alignment, and interve rtebral disc spaces are normal. The paravertebral soft tissues are unremarkable. The odontoid is inta ct. There is a healed fracture of the left clavicle. IMPRESSION: 1. Acute fractures of the lateral wall of the left orbit and the left zygomatic arch. 2. Normal cervical spine. Reviewed, dictated and finalized at location A.
--- NOTE | ~2020-10-22 | CT_ITS ---
EXAMINATION: CT brain wo con INDICATION: Head injury COMPARISON: 08/31/2019 TECHNIQUE: Standard unenhanced head CT. The dose-length product (DLP) was 605.33 mGy-cm. The mA was a djusted according to patient size. Iterative reconstruction technique was employed. FINDINGS: There is no intracranial hemorrhage, acute infarction, or abnormal mass lesion. The ventric les are normal. There is no abnormal mass effect or midline shift. The sellers-white matter differentiat ion is normal. The basal cisterns are patent. Left periorbital soft tissue swelling is noted. There i s a subtle nondisplaced fracture in the lateral wall of the left orbit. A small amount of intraorbita l gas is noted on the left. There is mild mucosal thickening of the paranasal sinuses. IMPRESSION: 1. No acute intracranial abnormality. 2. Left lateral orbital wall fracture. Reviewed, dictated and finalized at location A.
--- NOTE | ~2020-10-22 | XR_ITS ---
XR forearm LT 2V, XR wrist LT 2V 10/22/2020 12:12 Indication: Status post fall with left arm pain Procedure: 2 views left forearm in 2 views left wrist Comparison: No prior studies for comparison. Findings: There is a comminuted intra-articular fracture distal aspect of the radius with dorsal angu lation. No other fracture identified. Mild soft tissue swelling. Impression: 1: Mildly displaced intra-articular fracture distal aspect of the left radius with dorsal angulation. Reviewed, dictated and finalized at location A. Impression: 1: Mildly displaced intra-articular fracture distal aspect of the left radius w ith dorsal angulation. Impression: 1: Mildly displaced intra-articular fracture distal aspect of the left radius w ith dorsal angulation.
[2020-10-22 11:31] VITALS: BP 113/88; PULSE 103; RESP 14; TEMP 36.1; O2SAT 96
--- NOTE | 2020-10-22 11:34 | ED.GENADULT ---
HPI - General Adult General Chief complaint: Fall Stated complaint: possible lt wrist fracture Source: patient Mode of arrival: ambulatory Limitations: no limitations History of Present Illness HPI narrative: Sang is a 40M with a PMH of hep C, Bipolar 1, heroin and methamphetamine abuse that presented to the ED with pain and deformity in his left forearm/wrist and a black eye. He was reportedly doing laundry 2 days ago, tripped and fell down the stairs. He believes he did lose consciousness. He came to the ED yesterday but left before being seen. Related Data Home Medications Medication Instructions Recorded Confirmed buprenorphine-naloxone [Suboxone] 1 film BUCCAL BID 10/22/20 10/22/20 Allergies Allergy/AdvReac Type Severity Reaction Status Date / Time No Known Allergies Allergy Unknown Unverified 05/20/12 23:00 Review of Systems Constitutional: Constitutional: Reports no additional constitutional complaints Eyes: Eyes: Reports no additional eye complaints ENT: Reports system reviewed and no additional complaints, except as documented Cardiovascular: Cardiovascular: Reports no additional cardiovascular complaints Respiratory: Respiratory: Reports no additional respiratory complaints Gastrointestinal: Gastrointestinal: Reports no additional gastrointestinal complaints Genitourinary: Genitourinary: Reports no additional male genitourinary complaints Musculoskeletal: Musculoskeletal: Reports as per HPI Integumentary/Breasts: Skin/Breast: Reports system reviewed and no additional complaints, except as docu Neurologic: Reports as per HPI Psychiatric: Psychiatric: Reports no additional psychiatric complaints Endocrine: Endocrine: Reports no additional endocrine complaints Hematologic/Lymphatic: Hematologic/Lymphatic: Reports no additional hematologic/lymphatic complaints Allergic/Immunologic: Allergic/Immunologic: Reports no additional allergic/immunologic complaints [facility] Past Medical History Medical History Atrial fibrillation Bipolar 1 disorder Substance abuse Surgical History Surgical History History of radiofrequency ablation procedure for cardiac arrhythmia Family History Family History Other Unknown family medical history Social History Social History Social History: The patient's daughter Stefani stated that he lives with his mother and that he has 4 children. He smokes about a pack cigarettes a day. He was known to use heroin in the past. And he has been using heroin for at least 7 years. On and off. He does use alcohol and unknown quantities. He lives with his mother and I am not sure she is the durable power commercial attorney for healthcare. Patient is listed as a full code. His daughter Stefani can be reached at [phone] Smoking packs per day: 1 Smoking cigarettes per day: 20.0 Smoking status: Current every day smoker Alcohol intake: current Substance use: current Substance use type: heroin and methamphetamine Gender identity (if verbalized by the patient): Male Spiritual care concerns: No Exam Const: General: no acute distress and alert Orientation/consciousness: patient oriented x3 Limitations: No altered mental status HENMT: Ears: external ears normal General nose exam: Normal external nose present Face and sinus: sinuses nontender Other: Left eye has bruising Eyes: Conjunctivae: conjunctivae normal Pupils: Equal, round and reactive pupils present Neck: Neck: normal visual inspection Other: No midline tenderness. No pain with active ROM Chest: Chest palpation & inspection: normal inspection of the chest Resp: Effort & Inspection: normal respiratory effort Auscultation: clear to auscultation bilaterally Cardio: Rate: regula
[2020-10-22] MEDS: KETOROLAC 15 MG/ML VIAL (*BKC) IV PUSH (11:41)
[2020-10-22] MEDS: AMOXICILLIN/CLAVULANATE K 875-125 MG TAB 1 TABLET PO (13:34)
[2020-10-22 14:06] VITALS: BP 125/87; PULSE 89; RESP 16; O2SAT 97
== END 2020-10-22 14:06 | disposition home or self-care (01) ==
PROVIDERS: Emergency Provider Family Medicine
DX: S52.502A Unspecified fracture of the lower end of left radius, initial encounter for closed fracture (principal); S02.85XA Fracture of orbit, unspecified, initial encounter for closed fracture; S02.40FA Zygomatic fracture, left side, initial encounter for closed fracture; W10.9XXA Fall (on) (from) unspecified stairs and steps, initial encounter
CPT/HCPCS: 29125; 70450; 70486; 72125; 73090; 73100; 96365; 96375; 99283; 99284; A4565; A9270; J0131; J1885

== ENCOUNTER 2022-05-28 02:12 | Emergency (ER) | payer MEDICAID, SELFPAY ==
[2022-05-28 02:15] VITALS: BP 158/100; PULSE 103; RESP 20; TEMP 36.6; O2SAT 100
--- NOTE | 2022-05-28 02:24 | ED.OVERDOSE ---
HPI - Overdose General Chief Complaint: Anxiety Stated Complaint: Panic Attack Time Seen by Provider: 05/28/22 02:24 Source: patient and RN notes reviewed Mode of arrival: ambulatory Limitations: no limitations Related Data Home Medications Medication Instructions Recorded Confirmed No Home Medications 05/28/22 05/28/22 Allergies Allergy/AdvReac Type Severity Reaction Status Date / Time No Known Allergies Allergy Unknown Unverified 05/20/12 23:00 [facility] Past Medical History Medical History Atrial fibrillation Bipolar 1 disorder Substance abuse Surgical History Surgical History History of radiofrequency ablation procedure for cardiac arrhythmia Family History Family History Other Unknown family medical history Social History Social History Social History: The patient's daughter Stefani stated that he lives with his mother and that he has 4 children. He smokes about a pack cigarettes a day. He was known to use heroin in the past. And he has been using heroin for at least 7 years. On and off. He does use alcohol and unknown quantities. He lives with his mother and I am not sure she is the durable power deputy commonwealth's attorney for healthcare. Patient is listed as a full code. His daughter Stefani can be reached at [phone] Smoking packs per day: 1 Smoking cigarettes per day: 20.0 Smoking status: Current every day smoker Alcohol intake: current Substance use: current Substance use type: heroin and methamphetamine Living arrangements: with family Gender identity (if verbalized by the patient): Male Spiritual care concerns: No Discharge Plan Discharge Prescriptions: No Action No Home Medications Follow-up/Referrals: UNKNOWN,DOCTOR [Primary Care Provider] -
--- NOTE | 2022-05-28 02:28 | ED.GENADULT ---
HPI - General Adult General Chief complaint: Anxiety Stated complaint: Panic Attack Time Seen by Provider: 05/28/22 02:24 Source: patient and RN notes reviewed Mode of arrival: ambulatory Limitations: no limitations History of Present Illness HPI narrative: patient states that he used methamphetamine a couple hours prior to arrival. He is now having symptoms consistent with meth use. Earlier he said he also use something with fentanyl. Now I need something to counteract the methamphetamine. complaint: Methamphetamine use Onset (ago): hour(s) (2) Severity: moderate Related Data Home Medications Medication Instructions Recorded Confirmed No Home Medications 05/28/22 05/28/22 Allergies Allergy/AdvReac Type Severity Reaction Status Date / Time No Known Allergies Allergy Unknown Unverified 05/20/12 23:00 Review of Systems Review of Systems: All systems reviewed & are unremarkable except as noted in HPI and below PMFSH Past Medical History Medical History Atrial fibrillation Bipolar 1 disorder Substance abuse Surgical History Surgical History History of radiofrequency ablation procedure for cardiac arrhythmia Family History Family History Other Unknown family medical history Social History Social History Social History: The patient's daughter Stefani stated that he lives with his mother and that he has 4 children. He smokes about a pack cigarettes a day. He was known to use heroin in the past. And he has been using heroin for at least 7 years. On and off. He does use alcohol and unknown quantities. He lives with his mother and I am not sure she is the durable power attorney general for healthcare. Patient is listed as a full code. His daughter Stefani can be reached at [phone] Smoking packs per day: 1 Smoking cigarettes per day: 20.0 Smoking status: Current every day smoker Alcohol intake: current Substance use: current Substance use type: marijuana, amphetamines, painkillers, IV drugs and methamphetamine Living arrangements: with family Gender identity (if verbalized by the patient): Male Spiritual care concerns: No Exam Const: General: healthy appearing and alert Nutritional Appearance: well nourished Orientation/consciousness: patient oriented x3 Limitations: no limitations HENMT: Head: normal to inspection Ears: external ears normal Face/Nose/Sinus: Normal external nose present Face and sinus: normal facial exam Mouth: Yes moist mucous membranes Eyes: Conjunctivae: conjunctivae normal Pupils: Equal, round and reactive pupils present EOM: EOMs intact bilaterally Neck: Neck: normal visual inspection Resp: Effort & Inspection: normal respiratory effort Auscultation: clear to auscultation bilaterally Cardio: Rate: tachycardic Rhythm: regular rhythm GI: GI Palp: Yes Soft to palpation and No Tenderness to palpation present (GI) Auscultation: normal bowel sounds Back/Spine/Pelvis: Cervical Spine: cervical ROM normal Thoracic/Lumbar Spine: thoraco-lumbar ROM normal Skin: General skin exam: normal color Rashes: no rashes Neuro: General: patient oriented x3, moves all extremities, no focal motor deficits and CN's II-XI intact bilaterally Speech: normal speech Gait exam (Neuro): Normal gait present Extrem: General: normal to inspection and no clubbing, cyanosis or edema Psych: Mental Status: mental status grossly normal Affect: normal affect Attitude: cooperative Course Course Emergency Course: patient is improved following Ativan 2 mg IV push. Says that he wants to go home. He is advised to abstain using illegal illicit street drugs. Vital Signs Vital signs: Vital Signs Temperature 36.6 C 05/28/22 02:15 Pulse Rate 103 H 05/28/22 02:1
[2022-05-28] MEDS: LORazepam INJ (*CRX) 2 MG/ML VIAL IV PUSH (02:34)
[2022-05-28 03:14] VITALS: BP 130/90; PULSE 89; RESP 18
[2022-05-28 03:29] VITALS: BP 132/86; PULSE 80; RESP 18; TEMP 36.8; O2SAT 99
== END 2022-05-28 03:35 | disposition home or self-care (01) ==
PROVIDERS: Emergency Provider Emergency Medicine
DX: F15.10 Other stimulant abuse, uncomplicated (principal); I48.91 Unspecified atrial fibrillation; F17.210 Nicotine dependence, cigarettes, uncomplicated
CPT/HCPCS: 96374; 99284; J2060

== ENCOUNTER 2022-11-21 14:23 | Outpatient (CLI) | payer OTHER, SELFPAY ==
[2022-11-21 14:32] LABS: Basophils Absolute Auto 0.05 K/mm3 (0.00-0.10); Basophils Percent Auto 0.7 % (0.0-1.0); Eosinophils Absolute Auto 0.38 K/mm3 (0.02-0.50); Eosinophils Percent Auto 5.5 % (1.0-6.0); Hematocrit 42.1 % (40.0-54.0); Hemoglobin 13.3 g/dL (14.0-18.0); Immature Granulocyte Absolute 0.02 K/mm3 (0.00-0.00); Immature Granulocyte Percent A 0.3 % (0.0-0.0); Lymphocytes Percent Auto 21.6 % (18.0-42.0); Mean Corpuscular HGB Conc 31.6 g/dL (32.0-36.0); Mean Corpuscular Hemoglobin 28.1 pg (27.0-31.0); Mean Corpuscular Volume 88.8 fL (78.0-102.0); Mean Platelet Volume 8.5 fl (8.7-11.0); Monocytes Absolute Auto 0.58 K/mm3 (0.10-0.90); Monocytes Percent Auto 8.3 % (2.0-11.0); Neutrophils Absolute Auto 4.4 K/mm3 (1.7-7.2); Neutrophils Percent Auto 63.6 % (50.0-70.0); Platelet Count Result 233 K/mm3 (150-420); Red Blood Count 4.74 M/mm3 (4.70-6.10); Red Cell Distribution Width 13.5 % (11.6-14.4)
[2022-11-21 15:04] LABS: Alanine Aminotransferase 16 U/L (16-63); Albumin Level 3.4 g/dL (3.4-5.0); Alkaline Phosphatase 100 U/L (46-116); Anion Gap 7 mmol/L (8-16); Aspartate Amino Transferase 11 U/L (15-37); Bilirubin,Total 0.3 mg/dL (0.00-1.00); Blood Urea Nitrogen 16 mg/dL (7-18); Calcium 8.8 mg/dL (8.5-10.1); Carbon Dioxide 30 mmol/L (21-32); Chloride 101 mmol/L (98-108); Cholesterol 131 mg/dL (0-200); Estimated Glomerular Filt Rate > 60; Glucose 111 mg/dL (70-99); HDL Direct 42 mg/dL (40-60); LDL Cholesterol Calculated 72 mg/dL (<130); Osmolality Calculated 288 mOsm/kg (285-295); Potassium 3.8 mmol/L (3.5-5.1); Sodium 138 mmol/L (136-145); Total Protein 6.6 g/dL (6.4-8.2); Triglycerides 85 mg/dL (0-150)
[2022-11-24 12:45] LABS: Hepatitis C Virus Antibody Reactive
[2022-11-26 14:44] LABS: Hepatitis C Viral RNA PCR <15 IU/mL
== END 2022-11-21 14:24 | disposition home or self-care (01) ==
LOC: CHSLAB 14:25
PROVIDERS: PCP Family Medicine; Visit Provider Family Medicine
DX: B19.20 Unspecified viral hepatitis C without hepatic coma (principal)
CPT/HCPCS: 36415; 80053; 80061; 85025; 86803; 87522

== ENCOUNTER 2023-07-24 17:26 | Emergency (ER) | payer OTHER, SELFPAY ==
--- NOTE | ~2023-07-24 | CT_ITS ---
EXAMINATION: CTA chest PE protocol DATE: 07/24/2023 19:01 INDICATION: elevated D dimer; asymmetric Right LE swelling TECHNIQUE: Computed tomography angiography (CTA) of the chest was performed with 100 mL Omnipaque-350 intravenous contrast timed to evaluate the pulmonary arteries. Coronal maximum intensity projection 3D-reconstructions were created by the technologist. The dose-length product (DLP) was 437.57 mGy-cm. Automated exposure control and iterative reconstruction technique were employed. COMPARISON: 10/13/2019; x-ray chest, 07/10/2020. FINDINGS: Exam limited by moderate motion artifact. Lung parenchyma and airways: Clear. Pleura: Unremarkable. Thoracic inlet, axillae and chest wall: Unremarkable. Thoracic aorta: No significant dilation. No dissection. Mediastinum: Normal. Heart and pericardium: Normal. Coronary artery calcifications: Absent. Upper abdomen: No significant finding. Bones: No acute osseous finding. Pulmonary arteries: Study quality: Moderate respiratory motion limits evaluation of the subsegmental arteries, particularly in the bilateral lower lobes. No pulmonary emboli detected in the adequately v isualized pulmonary arteries. IMPRESSION: Motion limited examination which prevents adequate visualization of the subsegmental arteries, partic ularly in the bilateral lower lobes. No CT evidence of acute central or segmental pulmonary embolus. No acute process detected in the chest. Reviewed, dictated and finalized at location K. IMPRESSION: Motion limited examination which prevents adequate visualization of the subsegm ental arteries, particularly in the bilateral lower lobes. No CT evidence of ac elias central or segmental pulmonary embolus. No acute process detected in the chest.
[2023-07-24 17:27] VITALS: BP 118/84; PULSE 70; RESP 24; TEMP 36.6; O2SAT 99
--- NOTE | 2023-07-24 17:38 | ECG_ITS ---
Test Date: 2023-07-24 17:52:40 Measurements Intervals [place] Rate: 97 P: 62 MO: 156 QRS: 45 QRSD: 86 T: 44 QT: 379 QTc: 482 Interpretive Statements SINUS RHYTHM No previous ECG available for comparison Electronically Signed On 07-25-2023 14:22:26 CDT by Tianna Ray M.D.
--- NOTE | 2023-07-24 17:48 | PC.NURSE ---
lab at beside obtaining blood work and blood cultures. Will administer abx after blood cultures obtained.
--- NOTE | 2023-07-24 17:50 | ED.GENADULT ---
HPI - General Adult General Chief complaint: Extremity Problem,Nontraumatic Stated complaint: edema of legs; painful urination Time Seen by Provider: 07/24/23 17:29 History of Present Illness HPI narrative: The patient is a 43-year-old male who over the last 2 days has noted purulent penile discharge at the urethral meatus with significant dysuria and pain upon urination. He also has urinary frequency, urinary urgency, and is urinating small amounts each time but no hematuria. No history of STD's in the past (no gonorrhea/chlamydia/herpes/syphilis/trichomonas). He is sexually active with a new female partner, no use of condom protection. No pain swelling in the testicles. No scrotal or penile lesions. no fevers or chills. No chest pain or abdominal pain. No flank pain. The patient also complains of a 3 day history of swelling in both lower legs below the knee to the ankle, worse on the right, with skin wounds that are spontaneous in the right lower leg with pain in the right lower leg. He is able to ambulate but with pain. No trauma. Past medical history is notable for atrial fibrillation status post RF ablation, bipolar affective disorder, substance use disorder with methamphetamines, previous history of hepatitis-C, treated, as well as cigarette use. He has IVDA (fentanyl only). Related Data Allergies Allergy/AdvReac Type Severity Reaction Status Date / Time No Known Allergies Allergy Unknown Verified 07/24/23 17:42 Review of Systems Review of Systems: All systems reviewed & are unremarkable except as noted in HPI and below Constitutional: Constitutional: Denies chills, Denies excessive sweating, Denies fatigue, Denies fever(s), Denies headache(s) and Denies weakness Eyes: Eyes: Denies change in vision and Denies photophobia ENT: Denies dysphagia, Denies dizziness, Denies headache(s), Denies lip swelling, Denies nasal congestion, Denies sore throat and Denies tongue swelling Cardiovascular: Cardiovascular: Denies chest pain, Denies syncope, Denies rapid heart rate and Denies dyspnea Respiratory: Respiratory: Denies cough, Denies dyspnea and Denies wheezing Gastrointestinal: Gastrointestinal: Denies abdominal pain, Denies constipation, Denies dysphagia, Denies diarrhea, Denies nausea and Denies vomiting Genitourinary: Genitourinary: Denies hematuria, Reports dysuria ( Pain with urination), Reports penile discharge ( purulent penile discharge), Denies urinary frequency and Denies urinary urgency Musculoskeletal: Musculoskeletal: Denies back pain, Denies myalgias, Denies arthralgias, Denies joint swelling ( right lower extremity swelling) and Denies numbness Integumentary/Breasts: Skin/Breast: Denies pruritus, Reports erythema, Reports rash and Reports skin ulcer Comments: rash skin ulcer and erythema at the right lower extremity in various regions Neurologic: Denies confusion, Denies dizziness, Denies syncope, Denies headache(s), Denies focal weakness, Denies numbness and Denies weakness Psychiatric: Psychiatric: Denies anxiety and Denies confusion Endocrine: Endocrine: Denies excessive sweating and Denies fatigue Hematologic/Lymphatic: Hematologic/Lymphatic: Denies easy bleeding and Denies easy bruising Allergic/Immunologic: Allergic/Immunologic: Denies lip swelling, Denies tongue swelling and Denies wheezing PMFSH Past Medical History Medical History (Updated 07/24/23 @ 20:30 by Rob Sanchez MD) Atrial fibrillation Bipolar 1 disorder Pedal edema Substance abuse Surgical History Surgical History History of radiofrequency ablation procedure for cardiac arrhythmia Family History Family History Other Unknown family medical history Social History Social History Social History: The patient's daughter Stefani stated that he lives with his mot
[2023-07-24] MEDS: AZITHROMYCIN 250 MG TABLET 1000 MG PO (18:03)
[2023-07-24] MEDS: ACETAMINOPHEN 325 MG TABLET 650 MG PO (18:03)
[2023-07-24 18:04] LABS: Basophils Absolute Auto 0.03 K/mm3 (0.00-0.10); Basophils Percent Auto 0.4 % (0.0-1.0); Eosinophils Absolute Auto 0.17 K/mm3 (0.02-0.50); Eosinophils Percent Auto 2.1 % (1.0-6.0); Hematocrit 40.1 % (40.0-54.0); Hemoglobin 12.9 g/dL (14.0-18.0); Immature Granulocyte Absolute 0.04 K/mm3 (0.00-0.00); Immature Granulocyte Percent A 0.5 % (0.0-0.0); Lymphocytes Absolute Auto 1.41 K/mm3 (1.10-4.50); Lymphocytes Percent Auto 17.2 % (18.0-42.0); Mean Corpuscular HGB Conc 32.2 g/dL (32-36); Mean Corpuscular Hemoglobin 28.5 pg (27.0-31.0); Mean Corpuscular Volume 88.5 fL (78.0-102.0); Mean Platelet Volume 8.5 fl (8.7-11.0); Monocytes Percent Auto 8.6 % (2.0-11.0); Neutrophils Absolute Auto 5.83 K/mm3 (1.70-7.20); Neutrophils Percent Auto 71.2 % (50.0-70.0); Platelet Count Result 237 K/mm3 (150-420); Red Blood Count 4.53 M/mm3 (4.70-6.10); Red Cell Distribution Width 13.6 % (11.6-14.4); White Blood Count 8.2 K/mm3 (4.8-10.8)
[2023-07-24] MEDS: cefTRIAXone 2 GM/NS 100 ML 2 GM/100 ML BAG IVPB (18:04)
[2023-07-24] MEDS: KETOROLAC 30 MG/ML VIAL (*BKC) IV PUSH (18:04)
[2023-07-24] MEDS: metroNIDAZOLE 250 MG TABLET 2000 MG PO (18:04)
[2023-07-24 18:18] LABS: Alanine Aminotransferase 24 U/L (16-63); Albumin Level 3.2 g/dL (3.4-5.0); Alkaline Phosphatase 65 U/L (46-116); Anion Gap 9 mmol/L (4-12); Aspartate Amino Transferase 30 U/L (15-37); Bilirubin,Total 0.4 mg/dL (0.00-1.00); Blood Urea Nitrogen 18 mg/dL (7-18); CRP 7.3 mg/dL (0.0-0.9); Calcium 8.5 mg/dL (8.5-10.1); Carbon Dioxide 28 mmol/L (21-32); Chloride 98 mmol/L (98-108); Estimated CRCL calculation 106 ml/min; Estimated Glomerular Filt Rate > 60; Glucose 121 mg/dL (70-99); Osmolality Calculated 282 mOsm/kg (285-295); Potassium 3.3 mmol/L (3.5-5.1); Sodium 135 mmol/L (136-145); Total Protein 6.9 g/dL (6.4-8.2)
[2023-07-24 18:22] LABS: D Dimer 0.91 mg/L (0.19-0.50)
[2023-07-24 18:24] LABS: Lactic Acid Reflex 1.4 mmol/L (0.4-2.0)
--- NOTE | 2023-07-24 18:35 | PC.NURSE ---
patient taken down to Ct.
[2023-07-24 18:41] LABS: NT Pro B Type Natriuretic Pept 66 pg/mL (0-125); Troponin I 82.1 ng/L (0.00-60.4)
[2023-07-24 19:07] LABS: Erythrocyte Sedimentation Rate 28 mm/hr (0-15)
[2023-07-24 19:12] LABS: Appearance Urine Cloudy (Clear); Bilirubin Urine Negative (Negative); Blood Urine 2+ (Negative); Color Urine Yellow (Yellow); Glucose Urine UA Negative (Negative); Ketones Urine Negative (Negative); Leukocyte Esterase Ur 1+ LEU/UL (Negative); Nitrate Urine Negative (Negative); Protein Urine 2+ (Negative); Urobilinogen Urine 0.2 mg/dL (0.2-1.0); pH Urine 5.5 (5.0-8.0)
[2023-07-24] MEDS: ENOXAPARIN 100 MG/ML SYRINGE 70 MG SUB-Q (19:19)
[2023-07-24] MEDS: MORPHINE SULFATE (*CRX) 4 MG/ML INJ IV PUSH (19:19)
[2023-07-24] MEDS: POTASSIUM CHLORIDE 20 MEQ ER TABLET 40 MEQ PO (19:19)
[2023-07-24 19:21] LABS: Add Urine Microscopic? YES; Amphetamine Screen Urine Positive (Negative); Bacteria Urine Trace /hpf; Barbiturate Screen Urine Negative (Negative); Benzodiazepines Screen Urine Negative (Negative); Cannabinoid Screen Urine Negative (Negative); Cocaine Screen Urine Positive (Negative); Methadone Screen Urine Negative (Negative); Opiate Screen Urine Negative (Negative); Phencyclidine Screen Urine Negative (Negative); Squamous Epithelial Cell Urine Rare /hpf (Few); WBC Urine >75 /hpf (0-3)
[2023-07-24 20:15] VITALS: BP 115/73; PULSE 78; RESP 20; O2SAT 98
[2023-07-24 20:21] LABS: Partial Thromboplastin Time 37.9 Sec (23.9-30.70); Prothrombin Time 11.2 Seconds (9.50-12.1)
[2023-07-24 20:44] LABS: Troponin I 77.9 ng/L (0.00-60.4)
[2023-07-25 08:51] LABS: Chlamydia trachomatis DETECTED (NOT DETECTE); Neisseria gonorrhoeae PCR DETECTED (NOT DETECTE)
--- NOTE | 2023-07-27 16:58 | PC.NURSE ---
FINAL URINE CULTURE NO GROWTH
--- NOTE | 2023-07-31 12:36 | PC.NURSE ---
final blood cultures x2 reviewed. no growth after 5 days. no change in plan of care.
== END 2023-07-24 20:35 | disposition left against medical advice (07) ==
PROVIDERS: Emergency Provider Emergency Medicine; PCP Family Medicine
DX: R79.89 Other specified abnormal findings of blood chemistry (principal); L03.115 Cellulitis of right lower limb; E87.6 Hypokalemia; N39.0 Urinary tract infection, site not specified; F14.10 Cocaine abuse, uncomplicated; F15.10 Other stimulant abuse, uncomplicated; R36.9 Urethral discharge, unspecified; I48.91 Unspecified atrial fibrillation; F17.210 Nicotine dependence, cigarettes, uncomplicated; Z11.3 Encounter for screening for infections with a predominantly sexual mode of transmission
CPT/HCPCS: 36415; 71275; 80053; 80307; 81001; 83605; 83880; 84484; 85025; 85380; 85610; 85652; 85730; 86140; 87040; 87086; 87491; 87591; 93005; 96365; 96372; 96375; 99284; A9270; J0696; J1650; J1885; J2270; Q9967

== ENCOUNTER 2023-09-29 02:23 | Observation (INO) | payer OTHER, SELFPAY ==
[2023-09-29] VITALS (11 sets, daily range): BP systolic 125–141; BP diastolic 87–99; PULSE 77–97; RESP 12–20; TEMP 36.3–36.9; O2SAT 93–99; BMI 24.3
--- NOTE | ~2023-09-29 | CT_ITS ---
EXAMINATION: CTA chest PE protocol DATE: 09/29/2023 03:13 INDICATION: Dyspnea. TECHNIQUE: Computed tomography angiography (CTA) of the chest was performed with 100 mL Omnipaque-350 intravenous contrast timed to evaluate the pulmonary arteries. Coronal maximum intensity projection 3D-reconstructions were created by the technologist. Automated exposure control and iterative reconst ruction technique were employed. The dose-length product was 313.71 mGy-cm. COMPARISON: Chest CT 07/24/2023 FINDINGS: There are small airspace opacities in right middle lobe and right lower lobe. No pleural ef fusion. The heart size is normal. No pericardial effusion. There is no pulmonary embolus. There is mi ld thoracic spondylosis. IMPRESSION: 1. No pulmonary embolus. 2. New small airspace opacities in right middle lobe and right lower lobe, consistent with mild pneum onia. Reviewed, dictated and finalized at location A. IMPRESSION: 1. No pulmonary embolus. 2. New small airspace opacities in right middle lobe and right lower lobe, cons istent with mild pneumonia.
--- NOTE | ~2023-09-29 | XR_ITS ---
EXAMINATION: XR chest 1V DATE: 09/29/2023 03:18 INDICATION: Chest pain. TECHNIQUE: A single frontal view of the chest was obtained. COMPARISON: Chest single view 07/10/2020 FINDINGS: There is no pneumonia, pleural effusion, or pneumothorax. The heart size is normal. There i s an old healed fracture of left clavicle. IMPRESSION: 1. No acute cardiopulmonary disease. Reviewed, dictated and finalized at location A.
--- NOTE | 2023-09-29 02:28 | ECG_ITS ---
Test Date: 2023-09-29 02:31:45 Measurements Intervals [place] Rate: 94 P: 71 [place]: 144 QRS: 72 QRSD: 96 T: 64 QT: 385 QTc: 484 Interpretive Statements SINUS RHYTHM Compared to ECG 07/24/2023 17:52:40 No significant changes Electronically Signed On 09-29-2023 10:36:27 CDT by Tianna Ray M.D.
[2023-09-29 02:42] LABS: Basophils Absolute Auto 0.1 K/mm3 (0.0-0.1); Basophils Percent Auto 0.9 % (0.2-1.2); Eosinophils Absolute Auto 0.9 K/mm3 (0-0.3); Eosinophils Percent Auto 13.7 % (0-4.4); Hematocrit 36.1 % (42.0-52.0); Hemoglobin 11.8 g/dL (14.0-18.0); Immature Granulocyte Absolute 0.02 K/mm3 (0.00-0.031); Immature Granulocyte Percent A 0.3 % (0-0.5); Lymphocytes Absolute Auto 2.12 K/mm3 (0.9-3.2); Lymphocytes Percent Auto 32.2 % (18.3-44.2); Mean Corpuscular HGB Conc 32.7 g/dl (32-36); Mean Corpuscular Hemoglobin 27.6 pg (26-34); Mean Corpuscular Volume 84.5 fl (80-100); Monocytes Absolute Auto 0.6 K/mm3 (0.1-0.6); Monocytes Percent Auto 8.5 % (2.6-8.5); Neutrophils Absolute Auto 2.9 K/mm3 (1.3-6.7); Neutrophils Percent Auto 44.4 % (45.5-73.1); Platelet Count Result 253 k/mm3 (150-375); Red Blood Count 4.27 M/mm3 (4.6-6.20); Red Cell Distribution Width 13.8 % (11.5-14.5); White Blood Count 6.6 K/mm3 (4.5-10.0)
[2023-09-29] MEDS: ASPIRIN 81 MG CHEWABLE TABLET 324 MG PO (02:43)
[2023-09-29 02:51] LABS: Alanine Aminotransferase 17 U/L (6-50); Albumin Level 3.8 g/dL (3.5-5.1); Alkaline Phosphatase 84 U/L (38-126); Anion Gap 8 mmol/L (4-12); Aspartate Amino Transferase 32 U/L (17-59); Bilirubin,Total 0.3 mg/dL (0.2-1.3); Blood Urea Nitrogen 22 mg/dL (9-20); Calcium 8.7 mg/dL (8.4-10.2); Carbon Dioxide 26 mmol/L (22-30); Chloride 104 mmol/L (98-107); Estimated CRCL calculation 112 ml/min; Estimated Glomerular Filt Rate > 60; Glucose 97 mg/dL (65-110); Lipase 45 U/L (23-300); Sodium 138 mmol/L (137-145)
[2023-09-29 03:02] LABS: Creatine Kinase 138 U/L (55-170); Magnesium 2.2 mg/dL (1.6-2.3)
[2023-09-29 03:03] LABS: INR 1.1
[2023-09-29 03:04] LABS: Partial Thromboplastin Time 34.7 Seconds (22.3-36.8); Troponin I < 0.012 ng/mL (0.000-0.034)
[2023-09-29 03:12] LABS: NT Pro B Type Natriuretic Pept 110 pg/mL (19.9-100)
[2023-09-29 03:20] LABS: Procalcitonin 0.1 ng/mL
[2023-09-29 04:22] LABS: Lactic Acid Reflex < 0.5 mmol/L (0.7-2.0)
[2023-09-29 04:40] LABS: Add Urine Microscopic? NO; Appearance Urine Clear (Clear); Bilirubin Urine Negative (Negative); Blood Urine Negative (Negative); Color Urine Yellow (Yellow); Glucose Urine UA Negative (Negative); Ketones Urine Negative (Negative); Leukocyte Esterase Ur Negative LEU/UL (Negative); Nitrate Urine Negative (Negative); Protein Urine Negative (Negative); Specific Grav Ur 1.031 (1.001-1.035); pH Urine 6.5 (5.0-9.0)
--- NOTE | 2023-09-29 05:38 | ED.GENADULT ---
HPI - General Adult General Chief complaint: Chest Pain Stated complaint: CP Time Seen by Provider: 09/29/23 02:31 History of Present Illness HPI narrative: patient is a 43-year-old gentleman who presents emergency department with chief complaint of chest pain and palpitations. Patient reports that he was being detained by the police started having chest pain and was found to be in atrial fibrillation with rapid ventricular response by EMS patient was complaining of shortness of breath reports he has been having peripheral edema for some time and reports that he uses IV drugs. Patient reports that he has had rhabdomyolysis before in the past also has had issues with possible CHF. Related Data Allergies Allergy/AdvReac Type Severity Reaction Status Date / Time No Known Allergies Allergy Unknown Verified 07/24/23 17:42 Review of Systems Review of Systems: A 10 system review of systems was completed on the patient and is negative except for what is stated in the HPI. Nursing and ancillary documentation was reviewed. [facility] Past Medical History Medical History Atrial fibrillation Bipolar 1 disorder Pedal edema Substance abuse Surgical History Surgical History History of radiofrequency ablation procedure for cardiac arrhythmia Family History Family History Other Unknown family medical history Social History Social History Social History: The patient's daughter Stefani stated that he lives with his mother and that he has 4 children. He smokes about a pack cigarettes a day. He was known to use heroin in the past. And he has been using heroin for at least 7 years. On and off. He does use alcohol and unknown quantities. He lives with his mother and I am not sure she is the durable power tin flipper for healthcare. Patient is listed as a full code. His daughter Stefani can be reached at [phone] Smoking packs per day: 1 Smoking cigarettes per day: 20.0 Smoking status: Current every day smoker Alcohol intake: current Substance use: current Substance use type: marijuana, amphetamines, painkillers, IV drugs and methamphetamine Living arrangements: with family Gender identity (if verbalized by the patient): Male Spiritual care concerns: No Exam Narrative: GENERAL: Well-appearing, well-nourished, and in no acute distress. HEAD: Normocephalic, atraumatic. EYES: PERRLA and EOMI. ENT: Nares clear, no rhinorrhea or epistaxis. Mucous membranes moist. NECK: Supple. CHEST: Clear to auscultation. No respiratory distress. HEART: Regular rate and rhythm. No murmur heard. Normal peripheral pulses. ABDOMEN: Soft, nontender, nondistended, normal active bowel sounds. EXTREMITIES: Normal range of motion. 1+ edema. SKIN: Warm, dry, no rash. NEURO: No focal deficits. Alert and oriented x3. PSYCH: Normal mood and affect. Course Vital Signs Vital signs: Vital Signs Temperature 36.9 C 09/29/23 02:27 Pulse Rate 95 09/29/23 02:27 Respiratory Rate 20 09/29/23 02:27 Blood Pressure 125/99 H 09/29/23 02:27 Pulse Oximetry 96 09/29/23 02:27 Oxygen Delivery Room Air 09/29/23 02:27 Temperature 36.9 C 09/29/23 02:27 Pulse Rate 93 09/29/23 05:35 Respiratory Rate 14 09/29/23 05:34 Blood Pressure 135/87 09/29/23 05:34 Pulse Oximetry 96 09/29/23 05:34 Oxygen Delivery Room Air 09/29/23 02:27 Medical Decision Making [facility] Narrative Medical decision making narrative: differential diagnosis includes AFib RVR, pulmonary embolism, septic pulmonary embolism, CHF, valvular disorder laboratory studies were obtained on the patient showed a CBC with a white count of 6.6 electrolytes were within normal limits lactic acid wa
[2023-09-29 07:20] LABS: Troponin I < 0.012 ng/mL (0.000-0.034)
[2023-09-29 10:24] LABS: Troponin I < 0.012 ng/mL (0.000-0.034)
--- NOTE | 2023-09-29 11:35 | ADMGEN ---
This patient, Sang Chávez, was admitted to IMU Room 207-01. Patient/family oriented to hospital policies and general routines including ID bracelet, bed and alarms, visiting hours, pain management, procedures, bathroom and other care routines, personal items, smoking policy, room service/diet, and visiting hours. Information on how to activate the Rapid Response Team has been discussed. Patient/Family are encouraged to report perceived risks to care and to ask questions if they do not understand what they are told or what they should do.
--- NOTE | 2023-09-30 07:37 | PM.IMHP ---
H&P: HPI History of Present Illness Date/Time: 09/29/23 09:00 Chief Complaint: Chest pain Narrative: ER-HPI narrative: patient is a 43-year-old gentleman who presents emergency department with chief complaint of chest pain and palpitations. Patient reports that he was being detained by the police started having chest pain and was found to be in atrial fibrillation with rapid ventricular response by EMS patient was complaining of shortness of breath reports he has been having peripheral edema for some time and reports that he uses IV drugs. Patient reports that he has had rhabdomyolysis before in the past also has had issues with possible CHF. Patient stats he was with his friends and did some drug and while he was driving home he was stopped by the police, and was found to short of breath, patient was brought to the ER where he was in A. Fib with RVR, patient was admitted to IMU to monitor and his HR is trending down patient stats he is feeling better and does not feel short of breath. will monitor patient over pending cardiac ECHO. Review of Systems Review of Systems: A 10 system review of systems was completed on the patient and is negative except for what is stated in the HPI. Nursing and ancillary documentation was reviewed. [facility] Past Medical History Medical History Atrial fibrillation Bipolar 1 disorder Pedal edema Substance abuse Surgical History Surgical History History of radiofrequency ablation procedure for cardiac arrhythmia Family History Family History (System 10/01/23 @ 07:53 by Toñito Dang) Father Diabetes mellitus Social History Social History (System 10/01/23 @ 07:53 by Toñito Dang) Social History: The patient's daughter Stefani stated that he lives with his mother and that he has 4 children. He smokes about a pack cigarettes a day. He was known to use heroin in the past. And he has been using heroin for at least 7 years. On and off. He does use alcohol and unknown quantities. He lives with his mother and I am not sure she is the durable power mmi teacher for healthcare. Patient is listed as a full code. His daughter Stefani can be reached at [phone] Smoking packs per day: 0.5 Smoking cigarettes per day: 10.0 Years smoked: 23 Smoking pack-years: 11.50 Smoking status: Current every day smoker Tobacco type: cigarettes Alcohol intake: current Drinks per week: 1 Substance use: current Substance use type: IV drugs and methamphetamine Other substance usage details: uses substance daily Last use: 09/28/23 Do You Feel Safe in your Home?: Yes Lack of Transportation: No Lack of Food: Never True Current Housing: I Have Housing Concerned About Future Housing: No Difficulty Paying Gas/Electric Bills: YES Difficulty Paying for Meds: No Currently Unemployed: YES Education: High School Diploma/GED Difficulty w/ Childcare or Family Care: No Living arrangements: with family Gender identity (if verbalized by the patient): Male Spiritual care concerns: No Meds Home Medications and Allergies Home Medications Medication Instructions Recorded Confirmed Type No Home Medications 09/29/23 09/29/23 History Allergies Allergy/AdvReac Type Severity Reaction Status Date / Time No Known Allergies Allergy Unknown Verified 10/01/23 07:53 Vital Signs Vital Signs - 24 hr 09/29/23 08:04 09/29/23 08:31 09/29/23 12:00 Temperature 36.7 C 36.6 C 36.3 C L Pulse Rate 86 77 90 Respiratory Rate 14 14 12 Blood Pressure 130/88 131/94 H 141/93 H Pulse Oximetry 99 97 96 Oxygen Delivery 09/29/23 12:00 09/29/23 13:40 09/29/23 12:00 Temperature Pulse Rate 87 Respiratory Rate Blood Pressure Pulse Oximetry 93 Oxygen Delivery Room Air Room Air 09/29/23 16:00 09/29/23 14:00 09/29/23 16:00 May
--- NOTE | 2023-09-30 07:37 | PM.DS ---
DS: Admitting Diagnosis Discharge Date 09/29/23 Admitting Diagnosis shortness of breath DS: Discharge Diagnosis Discharge Diagnosis Plan left AMA DS: Summary Hospital Course Hospital Course: patient was monitored with tele, plan was to do cardiac echo however patient left AMA Time Spent with Patient Time attestation: Total time spent providing and/or coordinating discharge services: Exam Narrative: left AMA DS: Data Data Completed and Pending Labs on day of discharge: Labs from last 24 hours 09/29/23 09:43 Troponin I < 0.012 Preliminary micro results at discharge 09/29/23 04:33 Blood Culture - Preliminary Blood 09/29/23 04:04 Blood Culture - Preliminary Blood Discharge Plan Discharge Consulting providers: Tianna Ray; Fredi Coulter V. Patient Disposition: Left Against Medical Advice Patient Instructions: How to Stop Smoking (GEN) Follow-up/Referrals: Steve Alvares, [Primary Care Provider] - Discharge Medications: No Action No Home Medications Date of admission: 09/29/23 06:04 Primary Care Provider: Steve Alvares Admitting Provider: Lamine Ro V. Attending physician on admission: Yohana Saxena Condition: Stable
== END 2023-09-29 16:04 | disposition left against medical advice (07) ==
LOC: ANHED 05:42 → ANHIMU 13:04
PROVIDERS: Admitting Provider Internal Medicine; Emergency Provider Emergency Medicine; PCP Family Medicine; Visit Provider Family Medicine
DX: I48.91 Unspecified atrial fibrillation (principal); R60.9 Edema, unspecified; F31.9 Bipolar disorder, unspecified; F15.90 Other stimulant use, unspecified, uncomplicated; F11.90 Opioid use, unspecified, uncomplicated; F17.210 Nicotine dependence, cigarettes, uncomplicated
CPT/HCPCS: 36415; 71045; 71275; 80053; 81003; 82550; 83605; 83690; 83735; 83880; 84145; 84484; 85025; 85610; 85730; 87040; 93005; 99285; A9270; G0378; Q9967

== ENCOUNTER 2024-04-03 21:14 | Emergency (ER) | payer OTHER, SELFPAY ==
[2024-04-03] VITALS (11 sets, daily range): BP systolic 120–162; BP diastolic 75–117; PULSE 80–94; RESP 10–18; TEMP 36.4; O2SAT 96–100
--- NOTE | 2024-04-03 21:29 | PC.NURSE ---
XRAY AT THE BEDSIDE
--- NOTE | 2024-04-03 21:37 | PC.NURSE ---
LAB AT THE BEDSIDE. OFFICERS OUTSIDE THE ROOM
[2024-04-03 21:44] LABS: Basophils Absolute Auto 0.04 K/mm3 (0.00-0.10); Basophils Percent Auto 0.5 % (0.0-1.0); Eosinophils Absolute Auto 0.35 K/mm3 (0.02-0.50); Eosinophils Percent Auto 4.6 % (1.0-6.0); Hematocrit 40.5 % (40.0-54.0); Hemoglobin 12.9 g/dL (14.0-18.0); Immature Granulocyte Absolute 0.03 K/mm3 (0.00-0.00); Immature Granulocyte Percent A 0.4 % (0.0-0.0); Lymphocytes Absolute Auto 2.77 K/mm3 (1.10-4.50); Lymphocytes Percent Auto 36.5 % (18.0-42.0); Mean Corpuscular HGB Conc 31.9 g/dL (32-36); Mean Corpuscular Hemoglobin 27.1 pg (27.0-31.0); Mean Corpuscular Volume 85.1 fL (78.0-102.0); Mean Platelet Volume 8.8 fl (8.7-11.0); Monocytes Absolute Auto 0.48 K/mm3 (0.10-0.90); Monocytes Percent Auto 6.3 % (2.0-11.0); Neutrophils Absolute Auto 3.92 K/mm3 (1.70-7.20); Neutrophils Percent Auto 51.7 % (50.0-70.0); Platelet Count Result 271 K/mm3 (150-420); Red Blood Count 4.76 M/mm3 (4.70-6.10); Red Cell Distribution Width 13.4 % (11.6-14.4); White Blood Count 7.6 K/mm3 (4.8-10.8)
--- NOTE | 2024-04-03 21:55 | PC.NURSE ---
PATIENT RESTING ON STRETCHER. RIGHT ARM COVERING HIS FACE, LEFT ARM HOLDING CHEST WALL. OFFICERS AT THE BEDSIDE. [facility] NON LABORED.
[2024-04-03 22:07] LABS: Alanine Aminotransferase 20 U/L (16-63); Albumin Level 3.6 g/dL (3.4-5.0); Alkaline Phosphatase 122 U/L (46-116); Anion Gap 10 mmol/L (4-12); Aspartate Amino Transferase 14 U/L (15-37); Bilirubin,Total 0.3 mg/dL (0.00-1.00); Blood Urea Nitrogen 16 mg/dL (7-18); Calcium 8.6 mg/dL (8.5-10.1); Carbon Dioxide 28 mmol/L (21-32); Chloride 102 mmol/L (98-108); Estimated CRCL calculation 87 ml/min; Estimated Glomerular Filt Rate > 60; Glucose 101 mg/dL (70-99); Lipase 23 U/L (16-77); NT Pro B Type Natriuretic Pept 163 pg/mL (0-125); Osmolality Calculated 291 mOsm/kg (285-295); Potassium 3.6 mmol/L (3.5-5.1); Sodium 140 mmol/L (136-145); Total Protein 7.3 g/dL (6.4-8.2)
[2024-04-03 22:20] LABS: SARS-CoV-2 RNA PCR Negative (Negative)
[2024-04-03 22:21] LABS: INR 0.9; Partial Thromboplastin Time 29.7 Sec (23.9-30.70); Prothrombin Time 10.3 Seconds (9.50-12.1)
[2024-04-03 22:22] LABS: Influenza A QL RT-PCR Negative (Negative); Influenza B QL RT-PCR Negative (Negative); RSV RNA, RT-PCR Negative (Negative)
--- NOTE | 2024-04-03 22:32 | PC.NURSE ---
PATIENT WAS GIVEN A URINAL. INFORMED PATIENT THAT A URINE SAMPLE WAS NEEDED. PATIENT ATTEMPTING TO GO TO THE BATHROOM NOW
--- NOTE | 2024-04-03 22:39 | PC.NURSE ---
URINE TAKEN DOWN TO LAB. OFFICER AT THE BEDSIDE. PATIENT RESTING ON STRETCHER.
[2024-04-03 22:41] LABS: Add Urine Microscopic? NO; Appearance Urine Clear (Clear); Bilirubin Urine Negative (Negative); Blood Urine Negative (Negative); Color Urine Light Yellow (Yellow); Glucose Urine UA Negative (Negative); Ketones Urine Trace (Negative); Leukocyte Esterase Ur Negative LEU/UL (Negative); Nitrate Urine Negative (Negative); Protein Urine Negative (Negative)
[2024-04-03 22:48] LABS: Amphetamine Screen Urine Positive (Negative); Barbiturate Screen Urine Negative (Negative); Benzodiazepines Screen Urine Negative (Negative); Cannabinoid Screen Urine Negative (Negative); Cocaine Screen Urine Negative (Negative); Methadone Screen Urine Negative (Negative); Opiate Screen Urine Positive (Negative); Phencyclidine Screen Urine Negative (Negative)
--- NOTE | 2024-04-03 23:01 | PC.NURSE ---
RESTING QUIETLY ON STRETCHER. CALL LIGHT AT THE BEDSIDE. OFFICER IN THE ROOM. [facility] NON LABORED. RESP EVEN
--- NOTE | 2024-04-03 23:01 | ED.WEAKNESS ---
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 Currently there is no shortness of breath no diaphoresis no palpitations With nausea vomiting no fever chills. patient has a history of atrial fibrillation and had cardiac ablation performed approximately 1 to 2 years ago. Complaint: generalized weakness Onset (ago): hour(s) Severity: mild Related Data Home Medications ?Medication ?Instructions ?Recorded ?Confirmed ?Last Taken ?Type No Home Medications 09/29/23 09/29/23 Unknown History Allergies Allergy/AdvReac Type Severity Reaction Status Date / Time No Known Allergies Allergy Unknown Verified 04/03/24 22:51 Review of Systems Review of Systems: All systems reviewed & are unremarkable except as noted in HPI and below PMFSH Past Medical History Medical History Pedal edema Substance abuse Bipolar 1 disorder Atrial fibrillation Surgical History Surgical History History of radiofrequency ablation procedure for cardiac arrhythmia Family History Family History Father Diabetes mellitus Social History Social History Social History: The patient's daughter Stefani stated that he lives with his mother and that he has 4 children. He smokes about a pack cigarettes a day. He was known to use heroin in the past. And he has been using heroin for at least 7 years. On and off. He does use alcohol and unknown quantities. He lives with his mother and I am not sure she is the durable power family law attorney for healthcare. Patient is listed as a full code. His daughter Stefani can be reached at [phone] Smoking packs per day: 0.5 Smoking cigarettes per day: 10.0 Years smoked: 23 Smoking pack-years: 11.50 Smoking status: Current every day smoker Tobacco type: cigarettes Alcohol intake: current Drinks per week: 1 Substance use: current Substance use type: IV drugs and methamphetamine Other substance usage details: uses substance daily Last use: 09/28/23 Do You Feel Safe in your Home?: Yes Lack of Transportation: No Lack of Food: Never True Current Housing: I Have Housing Concerned About Future Housing: No Difficulty Paying Gas/Electric Bills: YES Difficulty Paying for Meds: No Currently Unemployed: YES Education: High School Diploma/GED Difficulty w/ Childcare or Family Care: No Living arrangements: with family Gender identity (if verbalized by the patient): Male Spiritual care concerns: No Exam Const: General: healthy appearing and no acute distress Nutritional Appearance: well nourished Orientation/consciousness: patient oriented x3 Limitations: no limitations HENMT: Head: normal to inspection Eyes: Conjunctivae: conjunctivae normal Neck: Neck: normal visual inspection, no lymphadenopathy and no meningeal signs Chest: Chest palpation & inspection: normal inspection of the chest Resp: Effort & Inspection: normal respiratory effort Auscultation: clear to auscultation bilaterally Cardio: Rate: regular rate Rhythm: abnormal rhythm GI: GI Palp: Yes Soft to palpation Auscultation: normal bowel sounds : General: Yes bladder normal to palpation Skin: General skin exam: normal color Rashes: no rashes Neuro: General: patient oriented x3, moves all extremities, no meningeal signs and no focal motor deficits Extrem: General: normal to inspection Course Course Emergency Course: Patient had an EKG which showed that he has atrial fibrillation with some regular rate, blood work obtained reviewed with no abnormalities, patient had a chest x-ray with no acute cardiopulmonary abnormalities. Patient with elevated troponins started on heparin drip and talk to numerous hospitals that patient is currently on a waiting list for a non-STEMI. Patient wants to leave [facility], I declare that I have personally explained to the patient the risks and consequences involved in leaving this facility at this time. The benefits of continued treatment and our hospitalization. And the alternatives. If any. To continue treatment and/or hospitalization. If applicable I have identified have not identified any psychosis, mental illness or medical illness that alters decision-making capacity. Vital Signs Vital signs: Vital Signs Temperature 36.4 C L 04/03/24 21:14 Pulse Rate 93 04/03/24 21:14 Respiratory Rate 18 04/03/24 21:14 Blood Pressure 162/117 H 04/03/24 21:14 Pulse Oximetry 98 04/03/24 21:14 Oxygen Delivery Room Air 04/03/24 21:14 Temperature 36.4 C L 04/03/24 21:14 Pulse Rate 83 04/04/24 03:01 Respiratory Rate 18 04/04/24 03:01 Blood Pressure 137/88 04/04/24 03:01 Pulse Oximetry 98 04/04/24 03:01 Oxygen Delivery Room Air 04/04/24 03:01 MDM - Weakness Lab Data 04/03/24 21:37 04/03/24 21:37 Labs: Lab Results 04/03/24 04/03/24 04/03/24 Range/Units 21:37 22:35 22:42 WBC 7.6 (4.8-10.8) K/mm3 RBC 4.76 (4.70-6.10) M/mm3 Hgb 12.9 L (14.0-18.0) g/dL Hct 40.5 (40.0-54.0) % MCV 85.1 (78.0-102.0) fL MCH 27.1 (27.0-31.0) pg MCHC 31.9 L (32-36) g/dL RDW 13.4 (11.6-14.4) % Plt Count 271 (150-420) K/mm3 MPV 8.8 (8.7-11.0) fl Immature Gran % (Auto) 0.4 H (0.0-0.0) % Neut % (Auto) 51.7 (50.0-70.0) % Lymph % (Auto) 36.5 (18.0-42.0) % [place] % (Auto) 6.3 (2.0-11.0) % Eos % (Auto) 4.6 (1.0-6.0) % Baso % (Auto) 0.5 (0.0-1.0) % Lymph # (Auto) 2.77 (1.10-4.50) K/mm3 [place] # (Auto) 0.48 (0.10-0.90) K/mm3 Eos # (Auto) 0.35 (0.02-0.50) K/mm3 Baso # (Auto) 0.04 (0.00-0.10) K/mm3 Abs Immat Gran (auto) 0.03 H (0.00-0.00) K/mm3 Absolute Neuts (auto) 3.92 (1.70-7.20) K/mm3 Absolute Nucleated RBC 0.00 (0.00-0.00) K/mm3 Nucleated RBC % 0.0 (0-0.0) % PT 10.3 (9.50-12.1) Seconds INR 0.9 APTT 29.7 (23.9-30.70) Sec Sodium 140 (136-145) mmol/L Potassium 3.6 (3.5-5.1) mmol/L Chloride 102 (98-108) mmol/L Carbon Dioxide 28 (21-32) mmol/L Anion Gap 10 (4-12) mmol/L BUN 16 (7-18) mg/dL Creatinine 0.91 (0.70-1.30) mg/dL Estim Creat Clear Calc 87 ml/min Estimated GFR > 60 (59 - ) Glucose 101 H (70-99) mg/dL Calculated Osmolality 291 (285-295) mOsm/kg Calcium 8.6 (8.5-10.1) mg/dL Total Bilirubin 0.3 (0.00-1.00) mg/dL AST 14 L (15-37) U/L ALT 20 (16-63) U/L Alkaline Phosphatase 122 H (46-116) U/L Troponin I 88.5 H* (0.00-60.4) ng/L NT-Pro-B Natriuret Pep 163 H (0-125) pg/mL Total Protein 7.3 (6.4-8.2) g/dL Albumin 3.6 (3.4-5.0) g/dL Lipase 23 (16-77) U/L Urine Color Light yellow (Yellow) Urine Appearance Clear (Clear) Urine pH 7.0 (5.0-8.0) Ur Specific [place] 1.020 (1.010-1.020) Urine Protein Negative (Negative) Urine Glucose (UA) Negative (Negative) Urine Ketones Trace H (Negative) Ur Blood (Man) Negative (Negative) Urine Nitrate Negative (Negative) Urine Bilirubin Negative (Negative) Urine Urobilinogen 1.0 (0.2-1.0) mg/dL Leukocyte Esterase Rfl Negative (Negative) MICHELLE/UL Urine Opiates Screen (Negative) Urine Methadone Screen (Negative) Ur Barbiturates Screen (Negative) Ur Phencyclidine Scrn (Negative) Ur Amphetamine Screen (Negative) U Benzodiazepines Scrn (Negative) Urine Cocaine Screen (Negative) U Cannabinoids Screen (Negative) Influenza A (RT-PCR) Negative (Negative) Influenza B (RT-PCR) Negative (Negative) RSV (RT-PCR) Negative (Negative) SARS-CoV-2 RNA (RT-PCR) Negative (Negative) 04/03/24 04/04/24 Range/Units 23:04 00:45 WBC (4.8-10.8) K/mm3 RBC (4.70-6.10) M/mm3 Hgb (14.0-18.0) g/dL Hct (40.0-54.0) % MCV (78.0-102.0) fL MCH (27.0-31.0) pg MCHC (32-36) g/dL RDW (11.6-14.4) % Plt Count (150-420) K/mm3 MPV (8.7-11.0) fl Immature Gran % (Auto) (0.0-0.0) % Neut % (Auto) (50.0-70.0) % Lymph % (Auto) (18.0-42.0) % [place] % (Auto) (2.0-11.0) % Eos % (Auto) (1.0-6.0) % Baso % (Auto) (0.0-1.0) % Lymph # (Auto) (1.10-4.50) K/mm3 [place] # (Auto) (0.10-0.90) K/mm3 Eos # (Auto) (0.02-0.50) K/mm3 Baso # (Auto) (0.00-0.10) K/mm3 Abs Immat Gran (auto) (0.00-0.00) K/mm3 Absolute Neuts (auto) (1.70-7.20) K/mm3 Absolute Nucleated RBC (0.00-0.00) K/mm3 Nucleated RBC % (0-0.0) % PT (9.50-12.1) Seconds INR APTT (23.9-30.70) Sec Sodium (136-145) mmol/L Potassium (3.5-5.1) mmol/L Chloride (98-108) mmol/L Carbon Dioxide (21-32) mmol/L Anion Gap (4-12) mmol/L BUN (7-18) mg/dL Creatinine (0.70-1.30) mg/dL Estim Creat Clear Calc ml/min Estimated GFR (59 - ) Glucose (70-99) mg/dL Calculated Osmolality (285-295) mOsm/kg Calcium (8.5-10.1) mg/dL Total Bilirubin (0.00-1.00) mg/dL AST (15-37) U/L ALT (16-63) U/L Alkaline Phosphatase (46-116) U/L Troponin I 85.8 H* (0.00-60.4) ng/L NT-Pro-B Natriuret Pep (0-125) pg/mL Total Protein (6.4-8.2) g/dL Albumin (3.4-5.0) g/dL Lipase (16-77) U/L Urine Color (Yellow) Urine Appearance (Clear) Urine pH (5.0-8.0) Ur Specific [place] (1.010-1.020) Urine Protein (Negative) Urine Glucose (UA) (Negative) Urine Ketones (Negative) Ur Blood (Man) (Negative) Urine Nitrate (Negative) Urine Bilirubin (Negative) Urine Urobilinogen (0.2-1.0) mg/dL Leukocyte Esterase Rfl (Negative) MICHELLE/UL Urine Opiates Screen Positive A (Negative) Urine Methadone Screen Negative (Negative) Ur Barbiturates Screen Negative (Negative) Ur Phencyclidine Scrn Negative (Negative) Ur Amphetamine Screen Positive A (Negative) U Benzodiazepines Scrn Negative (Negative) Urine Cocaine Screen Negative (Negative) U Cannabinoids Screen Negative (Negative) Influenza A (RT-PCR) (Negative) Influenza B (RT-PCR) (Negative) RSV (RT-PCR) (Negative) SARS-CoV-2 RNA (RT-PCR) (Negative) Critical Care Time Critical Care Time Critical Care Time: No Discharge Plan Discharge Clinical Impression: Methamphetamine abuse, Substance abuse, Non-ST elevated myocardial infarction (non-STEMI) Atrial fibrillation Qualifiers: Atrial fibrillation type: unspecified Qualified Code(s): I48.91 - Unspecified atrial fibrillation Patient Disposition: Left Against Medical Advice Condition: Stable Patient Language: Cook Islander Prescriptions: No Action No Home Medications Follow-up/Referrals: Steve Alvares DO [Primary Care Provider] - Time of Disposition: 03:34
[2024-04-03 23:05] LABS: Troponin I 88.5 ng/L (0.00-60.4)
--- NOTE | 2024-04-03 23:12 | PC.NURSE ---
UPDATED PATIENT THAT NEW [facility] BLOOD DRAW WOULD BE AT 0100. PATIENT REQUESTED ICE FOR DRY MOUTH. GIVEN.
--- NOTE | 2024-04-03 23:28 | PC.NURSE ---
PATIENT REPORTS BEING NAUSEATED AFTER EATING A FEW ICE CHIPS. DR MARIANO WAS NOTIFIED. NEW VERBAL ORDER WAS PLACED.
[2024-04-03] MEDS: ONDANSETRON INJ 4 MG/2 ML VIAL IV PUSH (23:31)
[2024-04-04] VITALS (9 sets, daily range): BP systolic 117–142; BP diastolic 82–104; PULSE 83–109; RESP 18; O2SAT 94–100
--- NOTE | 2024-04-04 00:47 | PC.NURSE ---
TROPONIN DRAWN AND TAKEN DOWN TO LAB
[2024-04-04 01:08] LABS: Troponin I 85.8 ng/L (0.00-60.4)
--- NOTE | 2024-04-04 01:17 | PC.NURSE ---
PATIENT WAS UPDATED ON CURRENT LAB VALUES. DR MARIANO IS NOW AT THE BEDSIDE
[2024-04-04] MEDS: ALPRAZolam (*CRX) 0.5 MG TABLET PO (01:45)
[2024-04-04] MEDS: SODIUM CHLORIDE 0.9% IV 1,000 ML 999 ML IV CONT (01:45)
[2024-04-04] MEDS: ASPIRIN 81 MG CHEWABLE TABLET 324 MG PO (01:45)
[2024-04-04] MEDS: HEPARIN SODIUM 5,000 UNITS/ML VIAL 4000 UNITS IV PUSH (01:46)
[2024-04-04] MEDS: HEPARIN SOD/D5W 100 UNITS/ML 25,000 UNITS/250 ML BAG 9 UNITS IV CONT (02:03)
--- NOTE | 2024-04-04 02:31 | PC.NURSE ---
POLICE OFFICERS HAVE LEFT. PATIENT IS CURRENTLY RESTING ON STRETCHER. PATIENT HAS CALLED [facility] AND NOTIFIED THEM OF ADMISSION/TRANSFER STATUS. PATIENT IS AWARE THAT TRANSFER COULD TAKE AWHILE. WILL BE KEEPING PATIENT UPDATED ON TRANSFER STATUS. CALL LIGHT IN REACH. URINAL IN REACH
--- NOTE | 2024-04-04 03:34 | PC.NURSE ---
PATIENT LEAVING AMA. STATES HE HAS TO BE IN [place] IN THE MORNING. HE IS JUST GOING TO GO TO [facility] AND START THE PROCESS ALL OVER. WOULD RATHER SEE HIS OWN [employer]ARK [employer]URAL[employer]. PATIENT IS ALERT AND ORIENTED X 4. NO ISSUES WITH DECISION MAKING CAPACITY. COOPERATIVE.
== END 2024-04-04 03:45 | disposition left against medical advice (07) ==
PROVIDERS: Emergency Provider Emergency Medicine; PCP Family Medicine
DX: I21.4 Non-ST elevation (NSTEMI) myocardial infarction (principal); F15.10 Other stimulant abuse, uncomplicated; I48.91 Unspecified atrial fibrillation; F17.210 Nicotine dependence, cigarettes, uncomplicated; Z20.822 Contact with and (suspected) exposure to COVID-19
CPT/HCPCS: 36415; 71045; 80053; 80307; 81003; 83690; 83880; 84484; 85025; 85610; 85730; 87637; 93005; 96361; 96374; 99284; A9270; J1644; J2405; J7030